=== PATIENT | female | born 1990 | race Caucasian/White ===

== ENCOUNTER 2017-09-12 10:13 | Emergency (ER) | payer MEDICAID, SELFPAY ==
[2017-09-12 10:26] VITALS: BP 125/86; PULSE 91; RESP 20; TEMP 36.8; O2SAT 98; BMI 29.1
--- NOTE | 2017-09-12 10:30 | HMH.EDUTC ---
[facility] [place] Disposition Clinical Impression: Tympanic membrane perforation, nontraumatic Qualifiers: Laterality: right Qualified Code(s): H72.91 - Unspecified perforation of tympanic membrane, right ear Disposition: Home, Self-Care Condition on Discharge: Good Additional Instructions: F/U with Dr Sexton Prescriptions: Ciprofloxacin HCl/Dexameth [Cipro 0.3%-Dex 0.1% Otic Susp 7.5mL] 4 drops OT BID 7 Days #1 drops.susp Cefdinir [Omnicef 300mg Capsule] 300 mg PO BID 10 Days #20 cap Referrals: Ravi Colin MD [Primary Care Provider] - Sean Sexton MD [Physician] - Time of Disposition: 10:46 Medical Decision Making - Medical Records Medical records reviewed: Yes: I reviewed the patient's medical records. Vital Signs: 09/12/17 10:26 Temperature 98.3 F Temperature Source Temporal Artery Scan Pulse Rate [Brachial] 91 H Respiratory Rate 20 Blood Pressure [Left Arm] 125/86 Blood Pressure Mean [Left Arm] 99 Blood Pressure Source [Left Arm] Automatic Cuff Blood Pressure Position [Left Arm] Sitting 02 Sat by Pulse Oximetry 98 Oxygen Delivery Method Room Air - Erik Inquiry Pt receiving controlled substance: No [facility] [place] HPI - General Stated complaint: ear ache Time Seen by Provider: 09/12/17 10:30 Mode of Arrival: Ambulatory Source of Information: Patient Limitations: No Limitations Description of Symptoms (Recalled from Triage Doc. by RN): RT EAR PAIN SINCE LAST NIGHT HEENT Symptoms (Recalled from RN notes): Yes Resp Symptoms (Recalled from RN notes): No Skin Symptoms (Recalled from RN notes): No MS Symptoms (Recalled from RN notes): No Functional Status (Recalled from RN notes): NA - History of Present Illness Provider Complaint: Right ear pain since this am. Woke up around 2 am, stretched and felt pop in right ear with severe pain. Pain has now resolved but has drainage from right ear. Has history of numerous ear infections, PE tubes, and a ruptured TM on the left with patch. Onset (ago): hour(s) (8) Location: head Treatments prior to arrival: none - Related Data Previous Rx's Medication Instructions Recorded Cefdinir [Omnicef 300mg Capsule] 300 mg PO BID 10 Days #20 cap 09/12/17 Ciprofloxacin HCl/Dexameth [Cipro 4 drops OT BID 7 Days #1 drops.susp 09/12/17 0.3%-Dex 0.1% Otic Susp 7.5mL] Allergies Allergy/AdvReac Type Severity Reaction Status Date / Time penicillin G [PENICILLIN G] Allergy Unknown Verified 09/12/17 10:28 - Worker's Comp Is this a Worker's Comp case?: No [facility] History Laterality Cases: Bilateral: Tonsillectomy Other Surgeries: Yes: Other (left TM patch) - *Social History Smoking Status: Never smoker Alcohol Intake: never - Psychiatric History Expresses thoughts of harming self/others: None Suicide Plan Description: No Plan ROS Obtained: Yes All systems reviewed & no additional complaints - ENT Ears, Nose, Mouth, and Throat: Reports as per HPI, Reports ear discharge, Reports otalgia, Reports nasal congestion Physical Exam - General General appearance: alert, in no apparent distress - Head Head exam: atraumatic, normocephalic, normal inspection - Eye Eye exam: Present: normal appearance, PERRL, EOMI - ENT ENT exam: Present: normal exam, normal oropharynx, mucous membranes moist, normal external ear exam - Expanded ENT Exam TM/Canal exam: Right TM: erythema, perforation, canal discharge - Neck Neck exam: Present: normal inspection, full ROM, trachea midline. Absent: meningismus, lymphadenopathy - Chest Chest inspection: Present: normal inspection, symmetric chest wall rise. Absent: tenderness - Respiratory Respiratory exam: Present: normal lung sounds bilaterally. Absent: respiratory distress - Cardiovascular Cardiovascular exam: Present: regular rate, normal rhythm. Absent: JVD - Abdominal Exam Abdominal exam: Present: soft, normal bowel sounds. Absent: distention, tenderness, guarding - Extremities Exam Extremities exam: Pre
--- NOTE | 2017-09-12 10:35 | ED_ITS ---
[facility] [place] Disposition Clinical Impression: Tympanic membrane perforation, nontraumatic Qualifiers: Laterality: right Qualified Code(s): H72.91 - Unspecified perforation of tympanic membrane, right ear Disposition: Home, Self-Care Condition on Discharge: Good Additional Instructions: F/U with Dr Sexton Prescriptions: Ciprofloxacin HCl/Dexameth [Cipro 0.3%-Dex 0.1% Otic Susp 7.5mL] 4 drops OT BID 7 Days #1 drops.susp Cefdinir [Omnicef 300mg Capsule] 300 mg PO BID 10 Days #20 cap Referrals: Ravi Colin MD [Primary Care Provider] - Sean Sexton MD [Physician] - Time of Disposition: 10:46 Medical Decision Making - Medical Records Medical records reviewed: Yes: I reviewed the patient's medical records. Vital Signs: 09/12/17 10:26 Temperature 98.3 F Temperature Source Temporal Artery Scan Pulse Rate [Brachial] 91 H Respiratory Rate 20 Blood Pressure [Left Arm] 125/86 Blood Pressure Mean [Left Arm] 99 Blood Pressure Source [Left Arm] Automatic Cuff Blood Pressure Position [Left Arm] Sitting 02 Sat by Pulse Oximetry 98 Oxygen Delivery Method Room Air - Erik Inquiry Pt receiving controlled substance: No [facility] [place] HPI - General Stated complaint: ear ache Time Seen by Provider: 09/12/17 10:30 Mode of Arrival: Ambulatory Source of Information: Patient Limitations: No Limitations Description of Symptoms (Recalled from Triage Doc. by RN): RT EAR PAIN SINCE LAST NIGHT HEENT Symptoms (Recalled from RN notes): Yes Resp Symptoms (Recalled from RN notes): No Skin Symptoms (Recalled from RN notes): No MS Symptoms (Recalled from RN notes): No Functional Status (Recalled from RN notes): NA - History of Present Illness Provider Complaint: Right ear pain since this am. Woke up around 2 am, stretched and felt pop in right ear with severe pain. Pain has now resolved but has drainage from right ear. Has history of numerous ear infections, PE tubes, and a ruptured TM on the left with patch. Onset (ago): hour(s) (8) Location: head Treatments prior to arrival: none - Related Data Previous Rx's Medication Instructions Recorded Cefdinir [Omnicef 300mg Capsule] 300 mg PO BID 10 Days #20 cap 09/12/17 Ciprofloxacin HCl/Dexameth [Cipro 4 drops OT BID 7 Days #1 drops.susp 09/12/17 0.3%-Dex 0.1% Otic Susp 7.5mL] Allergies Allergy/AdvReac Type Severity Reaction Status Date / Time penicillin G [PENICILLIN G] Allergy Unknown Verified 09/12/17 10:28 - Worker's Comp Is this a Worker's Comp case?: No [facility] History Laterality Cases: Bilateral: Tonsillectomy Other Surgeries: Yes: Other (left TM patch) - *Social History Smoking Status: Never smoker Alcohol Intake: never - Psychiatric History Expresses thoughts of harming self/others: None Suicide Plan Description: No Plan ROS Obtained: Yes All systems reviewed & no additional complaints - ENT Ears, Nose, Mouth, and Throat: Reports as per HPI, Reports ear discharge, Reports otalgia, Reports nasal congestion Physical Exam - General General appearance: alert, in no apparent distress - Head Head exam: atraumatic, normocephalic, normal inspection - Eye Eye exam: Present: normal appearance, PERRL, EOMI - ENT ENT exam: Present: normal exam, normal oropharynx, mucous membranes moist, normal external ear exam - Expanded ENT Exam
== END 2017-09-12 11:02 | disposition home or self-care (01) ==
PROVIDERS: Emergency Provider Physician Assistant; Family Provider Emergency Medicine; PCP Emergency Medicine
DX: H72.91 Unspecified perforation of tympanic membrane, right ear (principal); Z88.0 Allergy status to penicillin
CPT/HCPCS: 99202

== ENCOUNTER 2017-10-28 10:58 | Emergency (ER) | payer MEDICAID, SELFPAY ==
[2017-10-28 11:08] VITALS: BP 156/83; PULSE 90; RESP 18; TEMP 36.5; O2SAT 96; BMI 30.2
[2017-10-28 11:17] LABS: UTC Influenza A Antigen Negative (Negative); UTC Influenza B Antigen Negative (Negative)
--- NOTE | 2017-10-28 11:27 | HMH.EDUTC ---
[facility] [place] Clinical Impression: Viral upper respiratory infection Disposition: Home, Self-Care Condition on Discharge: Good Instructions: DI for Viral Upper Respiratory Infection -- Adult, Common Cold Additional Instructions: * Monitor Temp. Tylenol and/or Ibuprofen as needed. ER if fever is no less than 101 despite alternating Tylenol and Ibuprofen * Encourage fluids, water, Gatorade, powerade, pedialyte if /toddler/or child * Warm salt water gargles for throat irritation *Warm fluids *Sore throat lozenges *Sleep elevated *humidifier or vaporizer Lots of rest Increase fluids, water, Gatorade, powerade *Flonase 2 sprays each nostril daily but may take 2-3 days to notice improvement with it *Bromfed may cause drowsiness. Know how it effect you or your child. Before driving, caring for small children or sending your child to school Follow up IMMEDIATELY for new or worsening of symptoms OR no noticeable improvement over the next 48-72 hours. 911 immediately for any life threatening symptoms such as chest pain or difficulty breathing Prescriptions: Brompheniramine/Pseudoephed/Dm [Bromfed DM Cough Syrup 5mL] 10 ml PO Q4HP PRN #350 ml PRN Reason: Cough Fluticasone Propionate [Flonase 50mcg nasal spray 16gm] 2 spr NS DAILY #1 bottle Referrals: Ravi Colin MD [Primary Care Provider] - Forms: Work/School Release Time of Disposition: 11:45 Medical Decision Making - Medical Records Medical records reviewed: Yes: I reviewed the patient's medical records. Vital Signs: 10/28/17 11:08 Temperature 97.7 F Temperature Source Temporal Artery Scan Pulse Rate [Right] 90 Respiratory Rate 18 Blood Pressure [Right Arm] 156/83 Blood Pressure Mean [Right Arm] 107 Blood Pressure Source [Right Arm] Automatic Cuff Blood Pressure Position [Right Arm] Sitting 02 Sat by Pulse Oximetry 96 Oxygen Delivery Method Room Air - Lab Data Lab results reviewed: Yes: I reviewed the patient's lab results. Lab Results 10/28/17 11:11: Influenza Type A Ag Negative, Influenza Type B Ag Negative - Erik Inquiry Pt receiving controlled substance: No Erik was queried for this patient: No [facility] [place] - General Stated complaint: poss flu Mode of Arrival: Ambulatory Source of Information: Patient Limitations: No Limitations Description of Symptoms (Recalled from Triage Doc. by RN): STATES FLU SYMPTOMS TODAY HEENT Symptoms (Recalled from RN notes): Yes Resp Symptoms (Recalled from RN notes): No Skin Symptoms (Recalled from RN notes): No MS Symptoms (Recalled from RN notes): No Functional Status (Recalled from RN notes): N - History of Present Illness Provider Complaint: Patient state that last week her daughter had the flu State that now she is having sore throat, nasal congestion and cough States that she started running a low grade fever of 99.2 State that she was at work and they sent her home and told her to come in and get checked out - Related Data Previous Rx's Medication Instructions Recorded Ciprofloxacin HCl/Dexameth [Cipro 4 drops OT BID 7 Days #1 drops.susp 09/12/17 0.3%-Dex 0.1% Otic Susp 7.5mL] Brompheniramine/Pseudoephed/Dm 10 ml PO Q4HP PRN #350 ml 10/28/17 [Bromfed DM Cough Syrup 5mL] Fluticasone Propionate [Flonase 2 spr NS DAILY #1 bottle 10/28/17 50mcg nasal spray 16gm] Allergies Allergy/AdvReac Type Severity Reaction Status Date / Time penicillin G [PENICILLIN G] Allergy Unknown Verified 10/02/17 16:47 - Worker's Comp Is this a Worker's Comp case?: Yes [facility] History I have reviewed the patient's past medical history: Yes Laterality Cases: Bilateral: Tonsillectomy Other Surgeries: Yes: Appendectomy, , Other Comment: left ear drum patch - Social History Smoking Status: Never smoker Alcohol Intake: never Substance Use Type: denies use Occupational Status: employed Housing: house - Psychiatric History Expresses thoughts of harming self/others: None Richard
--- NOTE | 2017-10-28 11:42 | ED_ITS ---
[facility] [place] Dis[place] Clinical Impression: Viral upper respiratory infection Disposition: Home, Self-Care Condition on Discharge: Good Instructions: DI for Viral Upper Respiratory Infection -- Adult, Common Cold Additional Instructions: * Monitor Temp. Tylenol and/or Ibuprofen as needed. ER if fever is no less than 101 despite alternating Tylenol and Ibuprofen * Encourage fluids, water, Gatorade, powerade, pedialyte if infant/toddler/or child * Warm salt water gargles for throat irritation *Warm fluids *Sore throat lozenges *Sleep elevated *humidifier or vaporizer Lots of rest Increase fluids, water, Gatorade, powerade *Flonase 2 sprays each nostril daily but may take 2-3 days to notice improvement with it *Bromfed may cause drowsiness. Know how it effect you or your child. Before driving, caring for small children or sending your child to school Follow up IMMEDIATELY for new or worsening of symptoms OR no noticeable improvement over the next 48-72 hours. 911 immediately for any life threatening symptoms such as chest pain or difficulty breathing Prescriptions: Brompheniramine/Pseudoephed/Dm [Bromfed DM Cough Syrup 5mL] 10 ml PO Q4HP PRN # 350 ml PRN Reason: Cough Fluticasone Propionate [Flonase 50mcg nasal spray 16gm] 2 spr NS DAILY #1 bottle Referrals: Ravi Colin MD [Primary Care Provider] - Forms: Work/School Release Time of Disposition: 11:45 Medical Decision Making - Medical Records Medical records reviewed: Yes: I reviewed the patient's medical records. Vital Signs: 10/28/17 11:08 Temperature 97.7 F Temperature Source Temporal Artery Scan Pulse Rate [Right] 90 Respiratory Rate 18 Blood Pressure [Right Arm] 156/83 Blood Pressure Mean [Right Arm] 107 Blood Pressure Source [Right Arm] Automatic Cuff Blood Pressure Position [Right Arm] Sitting 02 Sat by Pulse Oximetry 96 Oxygen Delivery Method Room Air - Lab Data Lab results reviewed: Yes: I reviewed the patient's lab results. Lab Results 10/28/17 11:11: Influenza Type A Ag Negative, Influenza Type B Ag Negative - Erik Inquiry Pt receiving controlled substance: No Erik was queried for this patient: No [facility] [place] HPI - General Stated complaint: poss flu Mode of Arrival: Ambulatory Source of Information: Patient Limitations: No Limitations Description of Symptoms (Recalled from Triage Doc. by RN): STATES FLU SYMPTOMS TODAY HEENT Symptoms (Recalled from RN notes): Yes Resp Symptoms (Recalled from RN notes): No Skin Symptoms (Recalled from RN notes): No MS Symptoms (Recalled from RN notes): No Functional Status (Recalled from RN notes): N - History of Present Illness Provider Complaint: Patient state that last week her daughter had the flu State that now she is having sore throat, nasal congestion and cough States that she started running a low grade fever of 99.2 State that she was at work and they sent her home and told her to come in and get checked out - Related Data Previous Rx's Medication Instructions Recorded Ciprofloxacin HCl/Dexameth [Cipro 4 drops OT BID 7 Days #1 drops.susp 09/12/17 0.3%-Dex 0.1% Otic Susp 7.5mL] Brompheniramine/Pseudoephed/Dm 10 ml PO Q4HP PRN #350 ml 10/28/17 [Bromfed DM Cough Syrup 5mL] Fluticasone Propionate [Flonase 2 spr NS DAILY #1 bottle 10/28/17 50mcg nasal spray 16gm] Allergies Allergy/AdvReac
[2017-10-28 11:43] VITALS: BP 152/88; PULSE 88; RESP 16; TEMP 36.5
== END 2017-10-28 11:50 | disposition home or self-care (01) ==
PROVIDERS: Emergency Provider Nurse Practitioner; Family Provider Emergency Medicine; PCP Emergency Medicine
DX: J06.9 Acute upper respiratory infection, unspecified (principal); Z88.0 Allergy status to penicillin
CPT/HCPCS: 87804; 99202

== ENCOUNTER 2022-12-18 13:49 | Emergency (ER) | payer MEDICAID, SELFPAY ==
[2022-12-18 14:01] VITALS: BP 151/90; PULSE 103; RESP 20; TEMP 36.8; O2SAT 99; BMI 29.9
--- NOTE | 2022-12-18 14:02 | EXP.UTC ---
Discharge Plan Disposition Patient Disposition: Home, Self-Care Condition: Good Prescriptions Prescriptions: No Action azithromycin 250 mg tablet 250 mg PO QDAY 5 Days Qty: 6 0RF Rx Instructions: ii tabs day one, i tab days 2-5 Referrals Follow up/Referrals: Ravi Colin MD [Primary Care Provider] - See instructions Activity Restrictions/Add. Instructions Additional Instructions/Restrictions: Take tylenol or ibuprofen for pain. Follow up with your regular doctor. GO TO THE ER FOR ANY WORSENING SYMPTOMS Clinical Impressions Clinical Impression: Impacted cerumen of right ear Instructions Patient Instructions: DI for Cerumen Impaction, Cerumen Impaction Discharge ED Provider: Miguelito Ham [facility] [place] General Stated complaint: RT ear pain Time Seen by Provider: 12/18/22 14:02 Related Data Previous Rx's Medication Instructions Recorded azithromycin 250 mg tablet 250 mg PO QDAY sinusitis 5 days #6 10/04/19 tabs Allergies Allergy/AdvReac Type Severity Reaction Status Date / Time penicillin G [PENICILLIN G] Allergy Unknown Verified 12/18/22 14:05 [facility] Disclaimer: The information contained in this section may have been updated after the patient was seen, as this information can be updated by other users. Social History Smoking Status: Never smoker alcohol intake: never substance use type: denies use current occupational status: other Travel in the last 8 weeks: Inside the [place] household members: family housing: house ROS Obtained: Yes All systems reviewed & no additional complaints except as documented Constitutional Constitutional: Denies chills and Denies fever(s) Eyes Eyes: Denies eye discharge ENT Ears, Nose, Mouth, and Throat: Reports as per HPI, Denies dizziness and Denies sore throat Cardiovascular Cardiovascular: Denies chest pain Respiratory Respiratory: Denies shortness of breath, Denies chest congestion, Denies cough, Denies stridor and Denies wheezing Gastrointestinal Gastrointestingal: Denies nausea or vomiting Musculoskeletal Musculoskeletal: Reports system reviewed and no additional complaints, except as documented and Denies arthralgias Integumentary/Breasts Skin/Breast: Denies rash Neurologic Neurologic: Denies dizziness and Denies paresthesias Allergic/Immunologic Allergic/Immunologic: Denies wheezing Physical Exam General General appearance: alert and in no apparent distress Head Head exam: atraumatic, normocephalic and normal inspection Eye Eye exam: Present normal appearance, PERRL and EOMI ENT ENT exam: Present normal oropharynx, mucous membranes moist, TM's normal bilaterally and normal external ear exam Expanded ENT Exam TM/Canal exam: Right TM: cerumen impaction Neck Neck exam: Present normal inspection, full ROM and trachea midline; Absent meningismus or lymphadenopathy Chest Chest inspection: Present normal inspection and symmetric chest wall rise; Absent tenderness Respiratory Respiratory exam: Present normal lung sounds bilaterally; Absent respiratory distress Cardiovascular Cardiovascular exam: Present regular rate and normal rhythm; Absent JVD Abdominal Exam Abdominal exam: Present soft and normal bowel sounds; Absent distention, tenderness or guarding Extremities Exam Extremities exam: Present normal inspection, full ROM and normal capillary refill; Absent calf tenderness Back Exam Back exam: Present normal inspection; Absent tenderness Neurological Exam Neurological exam: Present alert and oriented X3 Psychiatric Psychiatric exam: Present normal affect and normal mood Skin Skin exam: Present warm, dry, intact and normal color Lymphatic Lymphatic Findings: no adenopathy Medical Decision Making Medical Records Medical records reviewed: No I reviewed the patient's medical records. Erik Inquiry Pt receiving controlled substance: No
[2022-12-18 14:50] VITALS: BP 151/90; PULSE 103; RESP 20; TEMP 36.8
== END 2022-12-18 14:45 | disposition home or self-care (01) ==
PROVIDERS: Emergency Provider Nurse Practitioner Family; PCP Emergency Medicine
DX: H92.01 Otalgia, right ear (principal); H61.21 Impacted cerumen, right ear
CPT/HCPCS: 99203; 99212; 99213; G0463

== ENCOUNTER 2023-03-13 16:26 | Emergency (ER) | payer MEDICAID, SELFPAY ==
[2023-03-13 16:27] VITALS: BP 147/93; PULSE 113; RESP 18; TEMP 36.6; O2SAT 99; BMI 24.3
--- NOTE | 2023-03-13 16:41 | EXP.UTC ---
Discharge Plan Disposition Patient Disposition: Home, Self-Care Condition: Good Prescriptions Prescriptions: New sulfamethoxazole-trimethoprim [Bactrim DS] 800-160 mg Tablet 1 tab PO BID Qty: 20 0RF cephalexin 500 mg capsule 500 mg PO QID Qty: 40 0RF mupirocin 2 % ointment 1 applic topical TID 7 Days Qty: 15 0RF No Action azithromycin 250 mg tablet 250 mg PO QDAY 5 Days Qty: 6 0RF Rx Instructions: ii tabs day one, i tab days 2-5 Referrals Follow up/Referrals: Ravi Colin MD [Primary Care Provider] - See instructions Activity Restrictions/Add. Instructions Additional Instructions/Restrictions: Keep the affected area clean and dry. Follow up with your regular doctor. Take the antibiotics as directed and apply the topical antibiotics as directed. Apply warm wet compresses to the affected area three or four times per day. GO TO THE ER FOR ANY WORSENING SYMPTOMS Clinical Impressions Clinical Impression: Abscess of groin, right Stand Alone Forms Stand Alone Forms: Work/School Release Instructions Patient Instructions: Boil Discharge ED Provider: Miguelito Ham [facility] General Stated complaint: poss infection spot on RT leg Mode of Arrival: Ambulatory Source of Information: Patient Limitations: No Limitations Time Seen by Provider: 03/13/23 16:41 Description of Symptoms (Recalled from Triage Doc. by RN): Patient reports having a spot near her vagina that hurts. States it is painful and difficult for her to walk. HEENT Symptoms (Recalled from RN notes): No Resp Symptoms (Recalled from RN notes): No Skin Symptoms (Recalled from RN notes): Yes MS Symptoms (Recalled from RN notes): No Functional Status (Recalled from RN notes): wnl History of Present Illness Provider Complaint: She states that, since yesterday, she has had a red swollen painful area on the right side of her groin. She denies any fever/chills. She is not diabetic. Related Data Previous Rx's Medication Instructions Recorded azithromycin 250 mg tablet 250 mg PO QDAY sinusitis 5 days #6 10/04/19 tabs cephalexin 500 mg capsule 500 mg PO QID #40 caps 03/13/23 mupirocin 2 % topical ointment 1 applic topical TID 7 days #15 03/13/23 grams sulfamethoxazole 800 1 tab PO BID #20 tabs 03/13/23 mg-trimethoprim 160 mg tablet (Bactrim DS) Allergies Allergy/AdvReac Type Severity Reaction Status Date / Time penicillin G [PENICILLIN G] Allergy Unknown Verified 12/18/22 14:05 Worker's Comp Is this a Worker's Comp case?: No [facility] Disclaimer: The information contained in this section may have been updated after the patient was seen, as this information can be updated by other users. Social History Smoking Status: Never smoker alcohol intake: never substance use type: denies use current occupational status: other Travel in the last 8 weeks: Inside the [place] household members: family housing: house ROS Obtained: Yes All systems reviewed & no additional complaints except as documented Constitutional Constitutional: Denies chills and Denies fever(s) Eyes Eyes: Denies eye discharge ENT Ears, Nose, Mouth, and Throat: Denies dizziness, Denies otalgia and Denies sore throat Cardiovascular Cardiovascular: Denies chest pain Respiratory Respiratory: Denies shortness of breath, Denies chest congestion, Denies cough, Denies stridor and Denies wheezing Gastrointestinal Gastrointestingal: Denies nausea or vomiting Musculoskeletal Musculoskeletal: Reports system reviewed and no additional complaints, except as documented and Denies arthralgias Integumentary/Breasts Skin/Breast: Reports as per HPI Neurologic Neurologic: Denies dizziness and Denies paresthesias Allergic/Immunologic Allergic/Immunologic: Denies wheezing Physical Exam General General appearance: alert and in no apparent distress Head Head exam: atraumatic,
[2023-03-13 17:32] VITALS: BP 147/93; PULSE 113; RESP 18; TEMP 36.6; O2SAT 99
== END 2023-03-13 17:32 | disposition home or self-care (01) ==
PROVIDERS: Emergency Provider Nurse Practitioner Family; PCP Emergency Medicine
DX: L02.214 Cutaneous abscess of groin (principal)
CPT/HCPCS: 96372; 99212; 99214; G0463; J0696

== ENCOUNTER 2024-01-11 16:59 | Emergency (ER) | payer MEDICAID, SELFPAY ==
[2024-01-11 17:10] VITALS: BP 147/96; PULSE 103; RESP 19; TEMP 36.7; O2SAT 99; BMI 29.1
--- NOTE | 2024-01-11 17:29 | ED_ITS ---
Discharge Plan Disposition Patient Disposition: Home, Self-Care Condition: Good Prescriptions Prescriptions: New fluconazole 100 mg tablet 100 mg PO DAILY 2 Days Qty: 2 0RF Referrals Follow up/Referrals: Juliana Espinal PA [Primary Care Provider] - See instructions Activity Restrictions/Add. Instructions Additional Instructions/Restrictions: Drink plenty of fluids. Take the medications as directed. Follow up with your regular doctor. GO TO THE ER FOR ANY WORSENING SYMPTOMS Clinical Impressions Clinical Impression: Vaginal yeast infection Instructions Patient Instructions: DI for Vaginal Yeast Infection, Fluconazole Discharge ED Provider: Miguelito Ham [facility] [place] HPI General Stated complaint: poss yeast inf Mode of Arrival: Ambulatory Source of Information: Patient Limitations: No Limitations Time Seen by Provider: 01/11/24 17:28 Description of Symptoms (Recalled from Triage Doc. by RN): PATIENT C/O ITCHING TO GENITAL AREA WITH WHITE DISCHARGE THAT STARTED FRIDAY HEENT Symptoms (Recalled from RN notes): No Resp Symptoms (Recalled from RN notes): No Skin Symptoms (Recalled from RN notes): No MS Symptoms (Recalled from RN notes): No Functional Status (Recalled from RN notes): WNL Related Data Previous Rx's Medication Instructions Recorded fluconazole 100 mg tablet 100 mg PO DAILY 2 days #2 tabs 01/11/24 Allergies Allergy/AdvReac Type Severity Reaction Status Date / Time penicillin G [PENICILLIN G] Allergy Unknown Verified 12/18/22 14:05 Worker's Comp Is this a Worker's Comp case?: No [facility] Disclaimer: The information contained in this section may have been updated after the patient was seen, as this information can be updated by other users. Surgical History (Updated 01/11/24 @ 17:16 by Sharona Earl RN) History of tonsillectomy History of appendectomy History of section Social History Smoking Status: Never smoker alcohol intake: never substance use type: denies use current occupational status: other Travel in the last 8 weeks: Inside the [place] household members: family housing: house ROS Obtained: Yes All systems reviewed & no additional complaints except as documented Constitutional Constitutional: Denies chills and Denies fever(s) Eyes Eyes: Denies eye discharge ENT Ears, Nose, Mouth, and Throat: Denies dizziness, Denies otalgia and Denies sore throat Cardiovascular Cardiovascular: Denies chest pain Respiratory Respiratory: Denies shortness of breath, Denies chest congestion, Denies cough, Denies stridor and Denies wheezing Gastrointestinal Gastrointestingal: Denies nausea or vomiting Musculoskeletal Musculoskeletal: Reports system reviewed and no additional complaints, except as documented and Denies arthralgias Integumentary/Breasts Skin/Breast: Denies rash Neurologic Neurologic: Denies dizziness and Denies paresthesias Allergic/Immunologic Allergic/Immunologic: Denies wheezing Physical Exam General General appearance: alert and in no apparent distress Head Head exam: atraumatic, normocephalic and normal inspection Eye Eye exam: Present normal appearance, PERRL and EOMI ENT ENT exam: Present normal exam, normal oropharynx, mucous membranes moist, TM's normal bilaterally and normal external ear exam Neck Neck exam: Present normal inspection, full ROM and trachea midline; Absent meningismus or lymphadenopathy Chest Chest inspection: Present normal inspection and symmetric chest wall rise; Absent tenderness Respiratory Respiratory exam: Present normal lung sounds bilaterally; Absent respiratory distress Cardiovascular Cardiovascular exam: Present regular rate and normal rhythm; Absent JVD Abdominal Exam Abdominal exam: Present soft and normal bowel sounds; Absent distention, tenderness or guarding Extremities Exam Extremities exam: Present normal inspection, full ROM and normal capillary refill; Absent calf tenderness Back Exam Back exam: Present normal inspection; Absent tenderness Neurological Exam Neurological exam: Present alert and oriented X3 Psychiatric Psychiatric exam: Present normal affect and normal mood Skin Skin exam: Present warm, dry, intact and normal color Lymphatic Lymphatic Findings: no adenopathy Medical Decision Making Medical Records Medical records reviewed: No I reviewed the patient's medical records. Erik Inquiry Pt receiving controlled substance: No Vital Signs: 01/11/24 17:10 Temperature 98.0 F Temperature Source Oral Pulse Rate [Left Brachial] 103 H Respiratory Rate 19 Blood Pressure [Left Arm] 147/96 H Blood Pressure Mean [Left Arm] 113 Blood Pressure Source [Left Arm] Automatic Cuff Blood Pressure Position [Left Arm] Sitting 02 Sat by Pulse Oximetry 99 Oxygen Delivery Method Room Air
[2024-01-11] MEDS: FLUCONAZOLE 100MG TABLET 150 MG PO (18:00)
[2024-01-11 18:01] VITALS: BP 147/96; PULSE 103; RESP 19; TEMP 36.7; O2SAT 99
== END 2024-01-11 18:07 | disposition home or self-care (01) ==
PROVIDERS: Emergency Provider Nurse Practitioner Family; PCP Physician Assistant
DX: B37.31 Acute candidiasis of vulva and vagina (principal)
CPT/HCPCS: 99212; 99214; G0463

== ENCOUNTER 2024-05-24 09:43 | Emergency (ER) | payer MEDICAID, SELFPAY ==
[2024-05-24 10:10] VITALS: BP 156/94; PULSE 112; RESP 20; TEMP 37.9; O2SAT 100; BMI 28.6
--- NOTE | 2024-05-24 10:13 | EXP.UTC ---
Discharge Plan Disposition Patient Disposition: Home, Self-Care Condition: Good Prescriptions Prescriptions: New cefdinir 300 mg capsule 300 mg PO BID Qty: 20 0RF No Action fluconazole 100 mg tablet 100 mg PO DAILY 2 Days Qty: 2 0RF Referrals Follow up/Referrals: David Soria DO [Primary Care Provider] - See instructions Activity Restrictions/Add. Instructions Additional Instructions/Restrictions: Take tylenol or ibuprofen for pain or fever. Take the medications as directed. Follow up with your regular doctor. Call them today and get an appointment there to discuss your elevated blood sugar and other issues within the next 48 hours. GO TO THE ER FOR ANY WORSENING OR ADDITIONAL CONCERNING SYMPTOMS Clinical Impressions Clinical Impression: Fever of unknown origin, Hyperglycemia Stand Alone Forms Stand Alone Forms: Work/School Release Instructions Patient Instructions: DI for Viral Syndrome Print Language Print Language: Greek Discharge ED Provider: Miguelito Ham [facility] [place] HPI General Stated complaint: fever 103.9, Time Seen by Provider: 05/24/24 10:13 History of Present Illness Provider Complaint: She states that for the past 2 days she has felt bad and ran a fever up to 103.9. She denies any cough or congestion. She denies chest tightness. She denies any abdominal pain and n/v/d. She has had some mild urinary frequency and urgency. She denies any dysuria. She denies being diabetic but she does have a history of gestational diabetes when she was with her child. Related Data Previous Rx's ?Medication ?Instructions ?Recorded fluconazole 100 mg tablet 100 mg PO DAILY 2 days #2 tabs 01/11/24 cefdinir 300 mg capsule 300 mg PO BID #20 caps 05/24/24 Allergies Allergy/AdvReac Type Severity Reaction Status Date / Time penicillin G [PENICILLIN G] Allergy Unknown Verified 12/18/22 14:05 [facility] Disclaimer: The information contained in this section may have been updated after the patient was seen, as this information can be updated by other users. Surgical History (Updated 01/11/24 @ 17:16 by Sharona Earl RN) History of tonsillectomy History of appendectomy History of section Social History Smoking Status: Never smoker alcohol intake: never substance use type: denies use current occupational status: other Travel in the last 8 weeks: Inside the [place] household members: family housing: house ROS Obtained: Yes All systems reviewed & no additional complaints except as documented Constitutional Constitutional: Reports chills and Reports fever(s) Eyes Eyes: Denies eye discharge ENT Ears, Nose, Mouth, and Throat: Reports as per HPI Cardiovascular Cardiovascular: Denies chest pain Respiratory Respiratory: Denies chest congestion and Reports cough Gastrointestinal Gastrointestingal: Reports nausea; Denies abdominal pain, constipation, cramping, diarrhea or vomiting Musculoskeletal Musculoskeletal: Denies arthralgias Integumentary/Breasts Skin/Breast: Denies rash Neurologic Neurologic: Denies paresthesias Physical Exam General General appearance: alert and in no apparent distress Head Head exam: atraumatic, normocephalic and normal inspection Eye Eye exam: Present normal appearance, PERRL and EOMI ENT ENT exam: Present normal exam, normal oropharynx, mucous membranes moist, TM's normal bilaterally and normal external ear exam Neck Neck exam: Present normal inspection, full ROM and trachea midline; Absent meningismus or lymphadenopathy Chest Chest inspection: Present normal inspection and symmetric chest wall rise; Absent tenderness Respiratory Respiratory exam: Present normal lung sounds bilaterally; Absent respiratory distress Cardiovascular Cardiovascular exam: Present regular rate and normal rhythm; Absent JVD Abdominal Exam Abdominal exam: Present soft and normal bowel sounds; Absent distention, tenderness or guarding Extremities Exam Extremities exam: Present normal inspection, full ROM and normal capillary refill; Absent calf tenderness Back Exam Back exam: Present normal inspection; Absent tenderness Neurological Exam Neurological exam: Present alert and oriented X3 Psychiatric Psychiatric exam: Present normal affect and normal mood Skin Skin exam: Present warm, dry, intact and normal color Lymphatic Lymphatic Findings: no adenopathy Medical Decision Making Medical Records Medical records reviewed: No I reviewed the patient's medical records. Screening: Per USPSTF and CDC recommendations, given the prevalence of disease in our region, it is our hospital?s policy to screen for HIV and viral Hepatitis for all patients aged 18 and over and those with ongoing risk factors. Erik Inquiry Pt receiving controlled substance: No Lab Data Lab results reviewed: Yes I reviewed the patient's lab results. 05/24/24 11:00 05/24/24 11:00 Radiology Data #1: Image(s): Chest Image Reviewed: Yes I reviewed the patient's radiology image and Yes I have reviewed radiologist's interpretation Preliminary Findings: No Infiltrates Seen Accession No. 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 The heart size is normal. The mediastinum is within normal limits. There is no acute cardiopulmonary process. There are no pleural effusions. There is no pneumothorax. The bony thorax appears intact. IMPRESSION: No acute cardiopulmonary process. Reviewed, Interpreted and Dictated by Vicki Soria MD Transcribed by Megan Rivera Authenticated and . [facility]
[2024-05-24 10:28] LABS: Microscopic, Urine URINE MICROSCOPIC (MICROSCOPIC)
[2024-05-24 10:37] LABS: Appearance,Urine CLEAR (Clear); Bilirubin,Urine Negative (Negative); Blood, Urine Negative (Negative); Color,Urine YELLOW (Yellow); Glucose,Urine (UA) 1+ (Negative); Ketones,Urine Negative (Negative); Leukocyte Esterase,Urine TRACE (Negative); Nitrate,Urine Negative (Negative); Protein,Urine Negative (Negative); Specific Gravity, Urine <= 1.005 (1.005-1.030); Urobilinogen,Urine 0.2 EU/dl (0.2)
[2024-05-24 10:41] LABS: UTC Pregnancy Test, Urine Negative (Negative)
--- NOTE | 2024-05-24 10:55 | XR_ITS ---
FINAL REPORT TECHNIQUE: Chest PA & Lateral CLINICAL HISTORY: cough, congestion COMPARISON: None FINDINGS: 2 views of the chest were performed. The heart size is normal. The mediastinum is within normal limits. There is no acute cardiopulmonary process. There are no pleural effusions. There is no pneumothorax. The bony thorax appears intact. IMPRESSION: No acute cardiopulmonary process. Reviewed, Interpreted and Dictated by Cornelius Soria MD Transcribed by Megan Rivera Authenticated and [facility]
[2024-05-24 11:20] LABS: Bacteria,Urine 2+ /lpf; Yeast,Urine Occasional /lpf
[2024-05-24 11:23] LABS: UTC Strep Screen (Rapid) Negative (Negative)
[2024-05-24 11:29] LABS: Chloride 94 mmol/L (98-107); Potassium 3.6 mmoL/L (3.5-5.1); Sodium 129 mmol/L (136-145)
[2024-05-24 11:32] LABS: Anion Gap 11.6 mEq/L (5-15); Blood Urea Nitrogen 4 mg/dl (7-17); Carbon Dioxide 27 mmol/L (22.0-30.0); Creatinine Clearance Estimated 195 mL/min (50-200); Estimated Glomerular Filt Rate 141 ml/min (>60); GFR (African American) 171 ML/MIN (>60)
[2024-05-24 11:33] LABS: Calcium 8.6 mg/dl (8.4-10.2); Glucose 382 mg/dl (74-100)
[2024-05-24 11:35] LABS: Basophils # 0.1 K/mm3 (0-0.2); Basophils % 1.2 % (0.1-2.0); Eosinophils # 0.1 K/mm3 (0.0-0.4); Eosinophils % 1.1 % (0.1-12.0); Hematocrit 42.6 % (37.0-47.0); Hemoglobin 14.2 g/dL (12.2-16.2); Lymphocytes # 3.3 K/mm3 (0.7-4.5); Lymphocytes % 49.4 % (10-50); Mean Corpuscular HGB Conc 33.4 g/dL (31.8-35.4); Mean Corpuscular Hemoglobin 29.2 pg (27.0-31.2); Mean Corpuscular Volume 87.6 fl (81-99); Mean Platelet Volume 6.6 fl (7.4-10.4); Monocytes # 0.3 K/mm3 (0.1-1.0); Monocytes % 3.9 % (1.7-9.3); Neutrophils % 44.3 % (37.0-80.0); Platelet Count 241 K/mm3 (142-424); Red Blood Count 4.87 M/mm3 (4.20-5.40); Red Cell Distribution Width 13.7 % (11.5-17.5); White Blood Count 6.7 K/mm3 (4.8-10.8)
[2024-05-24 12:23] LABS: Acetone, Serum (Rapid) None Detected (None Detect)
[2024-05-24 12:36] VITALS: BP 156/94; PULSE 112; RESP 20; TEMP 37.9; O2SAT 100
[2024-05-24 12:47] LABS: Adenovirus,PCR Not Detected (NotDetected); Bordetella Pertussis Not Detected (NotDetected); Chlamydophila Pneumoniae, PCR Not Detected (NotDetected); Coronavirus 19, PCR Not Detected (NotDetected); Coronavirus 229E Not Detected (NotDetected); Coronavirus NL63 Not Detected (NotDetected); Coronavirus OC43 Not Detected (NotDetected); Coronovirus HKU1,PCR Not Detected (NotDetected); Human Metapneumovirus Not Detected (NotDetected); Influenza A, PCR Not Detected (NotDetected); Influenza AH1, 2009 Not Detected (NotDetected); Influenza AH1, PCR Not Detected (NotDetected); Influenza AH3,PCR Not Detected (NotDetected); Influenza B, PCR Not Detected (NotDetected); Mycoplasma Pneumoniae, PCR Not Detected (NotDetected); Parainfluenza 1, PCR Not Detected (NotDetected); Parainfluenza 2, PCR Not Detected (NotDetected); Parainfluenza 3, PCR Not Detected (NotDetected); Parainfluenza 4, PCR Not Detected (NotDetected); Respiratory Syncytial Virus Not Detected (NotDetected); Rhinovirus/Enterovirus Not Detected (NotDetected)
--- NOTE | 2024-05-26 11:39 | PC.NURSE ---
REVIEWED PATIENT'S URINE CULTURE WITH Verenice SMITH APRN. NO CHANGES NEEDED AT THIS TIME.
--- NOTE | 2024-05-26 13:33 | PC.NURSE ---
SPOKE WITH PATIENT ABOUT URINE CULTURE RESULTS. PATIENT STATES SHE IS SOME BETTER. ADVISED PATIENT TO CONTINUE TAKING ANTIBIOTICS AND FOLLOW-UP WITH PCP
== END 2024-05-24 12:44 | disposition home or self-care (01) ==
PROVIDERS: Emergency Provider Nurse Practitioner Family; PCP Internal Medicine
DX: R50.9 Fever, unspecified (principal); R73.9 Hyperglycemia, unspecified; E87.1 Hypo-osmolality and hyponatremia
CPT/HCPCS: 71046; 80048; 81001; 81025; 82009; 85025; 87086; 87088; 87186; 87265; 87486; 87581; 87632; 87635; 87880; 99212; 99214; G0463

== ENCOUNTER 2024-09-10 11:27 | Emergency (ER) | payer MEDICAID, SELFPAY ==
[2024-09-10 11:45] VITALS: BP 141/94; PULSE 113; RESP 19; TEMP 37.2; O2SAT 100; BMI 30.8
--- NOTE | 2024-09-10 12:02 | EXP.UTC ---
Discharge Plan Disposition Patient Disposition: Still a Patient Condition: Fair Prescriptions Prescriptions: No Action No Known Home Medications Referrals Follow up/Referrals: David Soria DO [Primary Care Provider] - See instructions Clinical Impressions Clinical Impression: Abdominal pain Print Language Print Language: Romanian Discharge ED Provider: Mickey Greene [facility] [place] General Stated complaint: pain in upper abd., nausea Mode of Arrival: Ambulatory Source of Information: Patient Limitations: No Limitations Time Seen by Provider: 09/10/24 12:02 Description of Symptoms (Recalled from Triage Doc. by RN): PATIENT C/O RUQ PAIN THAT RADIATES TO BACK WITH NAUSEA THAT HAS BEEN ON AND OFF SINCE FRIDAY HEENT Symptoms (Recalled from RN notes): No Resp Symptoms (Recalled from RN notes): No Skin Symptoms (Recalled from RN notes): No MS Symptoms (Recalled from RN notes): No Functional Status (Recalled from RN notes): WNL History of Present Illness Provider Complaint: She states that she is having abdominal pain and nausea. Her symptoms have been ongoing for the past 4 days. She states that her pain and nausea is getting worse. She states that eating makes her pain and nausea much worse. She has not found anything that helps relieve her pain. She has a history of appendectomy in the past. She does still have her gall bladder. She denies any urinary complaints. Related Data Home Medications ?Medication ?Instructions ?Recorded ?Confirmed No Known Home Medications 09/10/24 09/10/24 Allergies Allergy/AdvReac Type Severity Reaction Status Date / Time penicillin G (PENICILLIN G) Allergy Unknown Verified 12/18/22 14:05 Worker's Comp Is this a Worker's Comp case?: No [facility] Disclaimer: The information contained in this section may have been updated after the patient was seen, as this information can be updated by other users. Surgical History (Updated 09/10/24 @ 11:59 by Sharona Earl RN) History of tubal ligation History of tonsillectomy History of appendectomy History of section Social History Smoking Status: Never smoker alcohol intake: never substance use type: denies use current occupational status: other Travel in the last 8 weeks: [place] the [place] household members: family housing: house Have you lived/traveled outside US in past 30 days?: Yes Contact w/someone who lives/traveled outside US past 30 days?: Yes Exposure to someone with infectious disease in past 14 days?: No Do you have a fever (greater than 100.4 F or 38 C)?: No Have you tested positive for COVID-19: No Exposed to someone with COVID-19 in past 14 days?: No Do you have a sore throat?: No Do you have a cough?: No Do you have any weakness?: No Do you have any diarrhea?: No Are you experiencing any unusual bleeding?: No Do you have any muscle aches/pain?: Yes Do you have any abdominal pain?: No Are you experiencing loss of taste or smell?: No ROS Obtained: Yes All systems reviewed & no additional complaints except as documented Constitutional Constitutional: Denies chills, Denies fever(s) and Reports poor appetite ENT Ears, Nose, Mouth, and Throat: Denies dizziness and Denies sore throat Cardiovascular Cardiovascular: Denies dyspnea Respiratory Respiratory: Denies chest congestion, Denies cough and Denies dyspnea Gastrointestinal Gastrointestingal: Reports as per HPI Genitourinary Female Genitourinary: Denies difficulty voiding, Denies dysuria, Denies hematuria, Denies urinary frequency, Denies urinary incontinence, Denies urinary hesitancy and Denies urinary urgency Musculoskeletal Musculoskeletal: Denies arthralgias Integumentary/Breasts Skin/Breast: Denies rash Neurologic Neurologic: Denies dizziness Physical Exam General General appearance: alert and in no apparent distress Head Head exam: atraumatic and normocephalic Eye Eye exam: Present normal appearance, PERRL and EOMI ENT ENT exam: Present normal exam, normal oropharynx, mucous membranes moist, TM's normal bilaterally and normal external ear exam Neck Neck exam: Present normal inspection, full ROM and trachea midline; Absent tenderness, meningismus or lymphadenopathy Chest Chest inspection: Present normal inspection and symmetric chest wall rise; Absent tenderness, rash or abscess Respiratory Respiratory exam: Present normal lung sounds bilaterally; Absent respiratory distress, wheezes or stridor Cardiovascular Cardiovascular exam: Present regular rate and normal rhythm; Absent irregular rhythm, systolic murmur, diastolic murmur or JVD Abdominal Exam Abdominal exam: Present soft, tenderness, guarding and diminished bowel sounds; Absent distention, rebound or rigidity Extremities Exam Extremities exam: Present normal inspection and full ROM; Absent tenderness Back Exam Back exam: Present normal inspection and full ROM; Absent tenderness, CVA tenderness (R) or CVA tenderness (L) Neurological Exam Neurological exam: Present alert, oriented X3 and CN II-XII intact Psychiatric Psychiatric exam: Present normal affect and normal mood Skin Skin exam: Present warm, dry, intact and normal color Lymphatic Lymphatic Findings: no adenopathy Medical Decision Making Medical Records Medical records reviewed: No I reviewed the patient's medical records. Screening: Per USPSTF and CDC recommendations, given the prevalence of disease in our region, it is our hospital?s policy to screen for HIV and viral Hepatitis for all patients aged 18 and over and those with ongoing risk factors. Erik Inquiry Pt receiving controlled substance: No Vital Signs: 09/10/24 11:45 Temperature 98.9 F Temperature Source Oral Pulse Rate [Left Brachial] 113 H Respiratory Rate 19 Blood Pressure [Left Arm] 141/94 H Blood Pressure Mean [Left Arm] 109 02 Sat by Pulse Oximetry 100 Oxygen Delivery Method Room Air Medical Decision Narrative: She was transferred to the ER for further evaluation of her abdominal pain.
--- NOTE | 2024-09-10 12:05 | HMH.EDGENADL ---
Discharge Plan Prescriptions Prescriptions: No Action No Known Home Medications Referrals Follow up/Referrals: David Soria DO [Primary Care Provider] - See instructions Print Language Print Language: Tongan Discharge ED Provider: Mickey Greene General Adult HPI General Stated complaint: pain in upper abd., nausea Time Seen by Provider: 09/10/24 12:02 Mode of Arrival: Ambulatory Source of Information: Patient Limitations: No Limitations Description of Symptoms (Recalled from ER Triage Doc. by RN): PATIENT C/O RUQ PAIN THAT RADIATES TO BACK WITH NAUSEA THAT HAS BEEN ON AND OFF SINCE FRIDAY Related Data Home Medications ?Medication ?Instructions ?Recorded ?Confirmed No Known Home Medications 09/10/24 09/10/24 Allergies Allergy/AdvReac Type Severity Reaction Status Date / Time penicillin G (PENICILLIN G) Allergy Unknown Verified 12/18/22 14:05 [facility] Disclaimer: The information contained in this section may have been updated after the patient was seen, as this information can be updated by other users. Surgical History (Updated 09/10/24 @ 11:59 by Sharona Earl RN) History of tubal ligation History of tonsillectomy History of appendectomy History of section Social History Smoking Status: Never smoker alcohol intake: never substance use type: denies use current occupational status: other Travel in the last 8 weeks: [place] the [place] household members: family housing: house Have you lived/traveled outside US in past 30 days?: Yes Contact w/someone who lives/traveled outside US past 30 days?: Yes Exposure to someone with infectious disease in past 14 days?: No Do you have a fever (greater than 100.4 F or 38 C)?: No Have you tested positive for COVID-19: No Exposed to someone with COVID-19 in past 14 days?: No Do you have a sore throat?: No Do you have a cough?: No Do you have any weakness?: No Do you have any diarrhea?: No Are you experiencing any unusual bleeding?: No Do you have any muscle aches/pain?: Yes Do you have any abdominal pain?: No Are you experiencing loss of taste or smell?: No Other Medical History Have you received the Flu Vaccine for this season: Yes Have you received the Pneumonia Vaccine: No ROS Obtained: Yes All systems reviewed & no additional complaints except as documented Physical Exam General General appearance: alert and in no apparent distress Eye Eye exam: Present normal appearance, PERRL and EOMI Respiratory Respiratory exam: Present normal lung sounds bilaterally; Absent respiratory distress Cardiovascular Cardiovascular exam: Present regular rate and normal rhythm Abdominal Exam Abdominal exam: Present soft and distention; Absent tenderness, guarding or rebound Extremities Exam Extremities exam: Present normal inspection Neurological Exam Neurological exam: Present alert and oriented X3 Skin Skin exam: Present warm and dry Medical Decision Making Medical Records Medical records reviewed: Yes I reviewed the patient's medical records. Screening: Per USPSTF and CDC recommendations, given the prevalence of disease in our region, it is our hospital?s policy to screen for HIV and viral Hepatitis for all patients aged 18 and over and those with ongoing risk factors. Erik Inquiry Pt receiving controlled substance: No Vital Signs: 09/10/24 11:45 Temperature 98.9 F Temperature Source Oral Pulse Rate [Left Brachial] 113 H Respiratory Rate 19 Blood Pressure [Left Arm] 141/94 H Blood Pressure Mean [Left Arm] 109 02 Sat by Pulse Oximetry 100 Oxygen Delivery Method Room Air
[2024-09-10 12:07] VITALS: BP 127/89; PULSE 99; RESP 18; TEMP 36.6; O2SAT 100; BMI 28.8
--- NOTE | 2024-09-10 12:17 | US_ITS ---
FINAL REPORT TECHNIQUE: Multiple transverse and longitudinal images were obtained of the right upper quadrant. CLINICAL HISTORY: RUQ abd pain COMPARISON: None FINDINGS: The gallbladder shows no wall thickening, distention or stone disease. No biliary ductal dilatation is appreciated. No fluid collections are seen. Limited portions of the liver show fatty changes. No focal hepatic mass is seen. Limited portions of the right kidney are unremarkable. IMPRESSION: 1. No evidence of cholelithiasis or biliary obstruction. 2. Fatty change of liver. Reviewed, Interpreted and Dictated by Tyson Lomeli MD Transcribed by Ledy Rizzo Authenticated and [facility]
[2024-09-10 12:21] LABS: Basophils % 0.6 % (0.1-2.0); Eosinophils # 0.1 K/mm3 (0.0-0.4); Hematocrit 41.5 % (37.0-47.0); Hemoglobin 14.4 g/dL (12.2-16.2); Lymphocytes # 2.9 K/mm3 (0.7-4.5); Mean Corpuscular HGB Conc 34.7 g/dL (31.8-35.4); Mean Corpuscular Hemoglobin 28.2 pg (27.0-31.2); Mean Platelet Volume 9.3 fl (7.4-10.4); Monocytes # 0.4 K/mm3 (0.1-1.0); Neutrophils # 3.4 K/mm3 (1.8-7.8); Red Cell Distribution Width 12.6 % (11.5-17.5); White Blood Count 6.8 K/mm3 (4.8-10.8)
[2024-09-10 12:28] LABS: Albumin Level 4.5 g/dl (3.5-5.0); Chloride 99 mmol/L (98-107); Potassium 3.8 mmoL/L (3.5-5.1); Sodium 131 mmol/L (136-145)
[2024-09-10 12:30] LABS: Blood Urea Nitrogen 7 mg/dl (7-17); Creatinine Clearance Estimated 245 mL/min (50-200); Estimated Glomerular Filt Rate 182 ml/min (>60); GFR (African American) 220 ML/MIN (>60)
[2024-09-10 12:31] LABS: Alanine Aminotransferase 22 U/L (12-78); Albumin/Globulin Ratio 1.3 (1.1-1.8); Alkaline Phosphatase 114 U/L (38-126); Anion Gap 11.8 mEq/L (5-15); Aspartate Amino Transferase 23 U/L (14-36); Bilirubin,Total 1.2 mg/dl (0.2-1.3); Calcium 8.9 mg/dl (8.4-10.2); Carbon Dioxide 24 mmol/L (22.0-30.0); Globulin 3.4 g/dL (1.3-3.2); Lipase 66 U/L (23-300); Total Protein,Serum 7.9 g/dl (6.3-8.2)
[2024-09-10 12:33] VITALS: BP 127/80; PULSE 99; O2SAT 100
[2024-09-10 12:33] LABS: Glucose 452 mg/dl (74-100)
[2024-09-10 12:41] LABS: Lactate Venous 1.5 mmol/L (0.4-2.0); VBG Base Excess -4.9 mmol/L (-2.4-2.3); VBG HCO3 21.3 mmol/L (23-30); VBG Oxygen Saturation 55.4 % (50-70); VBG PCO2 43.2 mmol/L (35-51); VBG PH 7.31 mmol/L (7.31-7.41); VBG PO2 29.8 mmol/L (28-40); VBG Total CO2 22.6 mmol/L (23-27)
[2024-09-10 12:42] LABS: Lymphocytes % 42.6 % (10-50); Mean Corpuscular Volume 81.2 fl (81-99); Neutrophils % 49.5 % (37.0-80.0); Platelet Count 228 K/mm3 (142-424); Red Blood Count 5.11 M/mm3 (4.20-5.40)
[2024-09-10] MEDS: RINGERS SOLUTION,LACTATED 500 ML 999 ML IV (12:44)
[2024-09-10] MEDS: HYDROMORPHONE 2MG/ML SYRINGE 1 MG IV (12:44)
[2024-09-10] MEDS: ONDANSETRON 4MG/2ML VIAL 4 MG IV (12:44)
[2024-09-10 12:51] LABS: Acetone, Serum (Rapid) None Detected (None Detect)
[2024-09-10 12:58] LABS: HCG Qualitative, Serum Negative (Negative)
[2024-09-10] MEDS: FAMOTIDINE 20MG/2ML VIAL 40 MG IV (13:49)
[2024-09-10 13:57] LABS: HIV Combo NEGATIVE (Negative)
[2024-09-10] MEDS: INSULIN HUMAN REGULAR 100 UNITS/ML 10ML VIAL 10 UNIT SUBCUT (13:57)
[2024-09-10 14:05] LABS: Hepatitis C Ab Qual. W/ RFX NEGATIVE (Negative)
[2024-09-10] MEDS: PROMETHAZINE HCL 12.5MG TABLET 12.5 MG PO (15:00)
[2024-09-10] MEDS: ONDANSETRON 4MG ODT 4 MG SL (15:03)
--- NOTE | 2024-09-10 15:07 | HMH.EDGENADL ---
Discharge Plan Disposition Patient Disposition: Home, Self-Care Condition: Fair Prescriptions Prescriptions: New promethazine 12.5 mg tablet 12.5 mg PO TID Qty: 20 0RF ondansetron 4 mg tablet,disintegrating 4 mg PO Q6H PRN (Reason: nausea and vomiting) Qty: 20 0RF polyethylene glycol 3350 [Miralax] 17 gram/dose powder 17 g PO DAILY 10 Days Qty: 170 0RF sennosides [Natural Senna Laxative] 8.6 mg tablet 8.6 mg PO DAILY Qty: 30 0RF docusate calcium [Stool Softener (docusate iftikhar)] 240 mg capsule 240 mg PO DAILY Qty: 30 0RF Referrals Follow up/Referrals: David Soria DO [Primary Care Provider] - See instructions Activity Restrictions/Add. Instructions Additional Instructions/Restrictions: Take Zofran and Phenergan as needed for nausea and vomiting. Use bowel regimen as prescribed. Follow-up with primary care doctor. Please return the emerged part with any new, concerning, worsening symptoms. Clinical Impressions Clinical Impression: Abdominal pain Qualifiers: Abdominal location: right upper quadrant Qualified Code(s): R10.11 - Right upper quadrant pain Stand Alone Forms Stand Alone Forms: Work/School Release Instructions Patient Instructions: DI for Acute Abdominal Pain Print Language Print Language: Tajik Discharge ED Provider: Mickey Greene General Adult HPI General Chief complaint: Abdominal Pain Stated complaint: pain in upper abd., nausea Time Seen by Provider: 09/10/24 12:02 Mode of Arrival: Ambulatory Source of Information: Patient Limitations: No Limitations Description of Symptoms (Recalled from ER Triage Doc. by RN): PATIENT C/O RUQ PAIN THAT RADIATES TO BACK WITH NAUSEA THAT HAS BEEN ON AND OFF SINCE FRIDAY History of Present Illness HPI narrative: This is a 34-year-old female with a past medical history of type 2 diabetes who presents with right upper quadrant abdominal pain. States that she has had intermittent right upper quadrant abdominal pain for the last 2 to 3 days, worse with the eating. Also reports nausea and vomiting. Presented to urgent treatment center for evaluation and was sent to the emergency department for further evaluation and care. Related Data Previous Rx's ?Medication ?Instructions ?Recorded docusate calcium 240 mg capsule 240 mg PO DAILY #30 caps 09/10/24 (Stool Softener (docusate calcium)) ondansetron 4 mg disintegrating 4 mg PO Q6H PRN nausea and 09/10/24 tablet vomiting #20 tabs polyethylene glycol 3350 17 17 g PO DAILY 10 days #170 grams 09/10/24 gram/dose oral powder (Miralax) promethazine 12.5 mg tablet 12.5 mg PO TID #20 tabs 09/10/24 sennosides 8.6 mg tablet (Natural 8.6 mg PO DAILY #30 tabs 09/10/24 Senna Laxative) Allergies Allergy/AdvReac Type Severity Reaction Status Date / Time penicillin G (PENICILLIN G) Allergy Unknown Verified 12/18/22 14:05 [facility] Disclaimer: The information contained in this section may have been updated after the patient was seen, as this information can be updated by other users. Surgical History (Updated 09/10/24 @ 11:59 by Sharona Earl RN) History of tubal ligation History of tonsillectomy History of appendectomy History of section Social History Smoking Status: Never smoker alcohol intake: never substance use type: denies use current occupational status: other Travel in the last 8 weeks: Inside the [place] household members: family housing: house Have you lived/traveled outside [place] in past 30 days?: Yes Contact w/someone who lives/traveled outside [place] past 30 days?: Yes Exposure to someone with infectious disease in past 14 days?: No Do you have a fever (greater than 100.4 F or 38 C)?: No Have you tested positive for COVID-19: No Exposed to someone with COVID-19 in past 14 days?: No Do you have a sore throat?: No Do you have a cough?: No Do you have any weakness?: No Do you have any diarrhea?: No Are you experiencing any unusual bleeding?: No Do you have any muscle aches/pain?: Yes Do you have any abdominal pain?: No Are you experiencing loss of taste or smell?: No Other Medical History Have you received the Flu Vaccine for this season: Yes Have you received the Pneumonia Vaccine: No ROS Obtained: Yes All systems reviewed & no additional complaints except as documented Physical Exam General General appearance: alert and in no apparent distress Eye Eye exam: Present normal appearance, PERRL and EOMI Respiratory Respiratory exam: Present normal lung sounds bilaterally; Absent respiratory distress Cardiovascular Cardiovascular exam: Present regular rate and normal rhythm Abdominal Exam Abdominal exam: Present soft, distention and tenderness (RUQ); Absent guarding or rebound Extremities Exam Extremities exam: Present normal inspection Neurological Exam Neurological exam: Present alert and oriented X3 Skin Skin exam: Present warm and dry Medical Decision Making Medical Records Medical records reviewed: Yes I reviewed the patient's medical records. Screening: Per USPSTF and CDC recommendations, given the prevalence of disease in our region, it is our hospital?s policy to screen for HIV and viral Hepatitis for all patients aged 18 and over and those with ongoing risk factors. Erik Inquiry Pt receiving controlled substance: No Vital Signs: 09/10/24 11:45 09/10/24 12:07 09/10/24 12:33 Temperature 98.9 F 98 F Temperature Source Oral Oral Pulse Rate 99 H Pulse Rate [Left Brachial] 113 H 99 H Respiratory Rate 19 18 Blood Pressure 127/80 Blood Pressure [Left Arm] 141/94 H 127/89 Blood Pressure Mean [Left Arm] 109 101 02 Sat by Pulse Oximetry 100 100 100 Oxygen Delivery Method Room Air Room Air 09/10/24 15:22 Temperature 98.2 F Temperature Source Oral Pulse Rate 75 Pulse Rate [Left Brachial] Respiratory Rate 16 Blood Pressure 120/84 Blood Pressure [Left Arm] Blood Pressure Mean [Left Arm] 02 Sat by Pulse Oximetry Oxygen Delivery Method Room Air Lab Data Lab Results 09/10/24 12:10: WBC 6.8, RBC 5.11, Hgb 14.4, Hct 41.5, MCV 81.2, MCH 28.2, MCHC 34.7, RDW 12.6, Plt Count 228, MPV 9.3, Neut % (Auto) 49.5, Lymph % (Auto) 42.6, Clay % (Auto) 6.0, Eos % (Auto) 1.0, Baso % (Auto) 0.6, Neut # (Auto) 3.4, Lymph # (Auto) 2.9, Clay # (Auto) 0.4, Eos # (Auto) 0.1, Baso # (Auto) 0.0, Sodium 131 L, Potassium 3.8, Chloride 99, Carbon Dioxide 24, Anion Gap 11.8, BUN 7, Creatinine 0.40 L, Estimated Creat Clear 245, Estimated GFR 182, Est GFR ( Amer) 220, Glucose 452 H*, Calcium 8.9, Total Bilirubin 1.2, AST 23, ALT 22, Alkaline Phosphatase 114, Total Protein 7.9, Albumin 4.5, Globulin 3.4 H, Albumin/Globulin Ratio 1.3, Lipase 66, Serum HCG, Qual Negative, Acetone Level None detected, HCV Ab OC w/Rflx PCR Qn Negative, HIV Ag/Ab Combo Qual Negative 09/10/24 12:36: VBG pH 7.31, VBG pCO2 43.2, VBG pO2 29.8, VBG HCO3 21.3 L, VBG Total CO2 22.6 L, VBG O2 Saturation 55.4, VBG Base Excess -4.9 L, VBG Lactic Acid 1.5 09/10/24 12:10 09/10/24 12:10 Orders (Tests/Meds): ED MEDICATIONS Discontinued Medications Generic Name Dose Route Start Last Admin Trade Name Freq PRN Reason Stop Dose Admin Famotidine 40 mg 09/10/24 13:39 09/10/24 13:49 Famotidine 20mg/2ml Vial IV 09/10/24 13:40 40 mg ONCE ONE Administration Hydromorphone HCl 1 mg 09/10/24 12:10 09/10/24 12:44 Hydromorphone 2mg/Ml Syringe IV 09/10/24 12:11 1 mg ONCE ONE Administration Lactated Ringer's 500 mls @ 999 mls/hr 09/10/24 12:09 09/10/24 12:44 Lactated Ringer's 500ml IV 09/10/24 12:39 999 mls/hr .Q31M ONE Administration Insulin Human Regular 10 unit 09/10/24 14:00 09/10/24 13:57 Insulin Human Regular 100 Units/Ml 10ml Vial SUBCUT 09/10/24 14:01 10 unit ONCE ONE Administration Ondansetron HCl 4 mg 09/10/24 12:09 09/10/24 12:44 Ondansetron 4mg/2ml Vial IV 09/10/24 12:10 4 mg ONCE ONE Administration Ondansetron HCl 4 mg 09/10/24 15:03 09/10/24 15:03 Ondansetron 4mg Odt SL 09/10/24 15:04 4 mg ONCE ONE Administration Promethazine HCl 12.5 mg 09/10/24 14:09 09/10/24 15:00 Promethazine Hcl 12.5mg Tablet PO 09/10/24 14:10 12.5 mg ONCE ONE Administration ORDERS Category Date Time Status POCUS Point of Care (ER Only) Stat Exams 09/10/24 12:09 Completed US RUQ [US abdomen limited] Stat Exams 09/10/24 12:17 Completed Acetone, Serum (Rapid) Stat Lab 09/10/24 12:10 Completed CBC w/Auto Diff [Complete Blood Count Auto Diff] Stat Lab 09/10/24 12:10 Completed CMP [Comprehensive Metabolic Panel] Stat Lab 09/10/24 12:10 Completed HCG Qualitative, Serum Stat Lab 09/10/24 12:10 Completed HIV Combo Stat Lab 09/10/24 12:10 Completed Hepatitis C Ab Qual. W/ RFX Stat Lab 09/10/24 12:10 Completed Lipase Stat Lab 09/10/24 12:10 Completed VBG [Venous Blood Gas] Stat RT 09/10/24 12:36 Completed Medical Decision Narrative: In summary, this 34-year-old female with a history of type 2 diabetes presents to the emergency department today with right upper quadrant abdominal pain. On initial evaluation patient is afebrile, nontoxic-appearing, tachycardic to 113 but normotensive. Differential diagnosis includes but is not limited to cholelithiasis, cholecystitis, ectopic , pancreatitis. Based on these concerns, I ordered CBC, CMP, lipase, test, right upper quadrant ultrasound. Patient received Dilaudid, Zofran, 1 L of lactated Ringer's for treatment. Labs personally reviewed demonstrate glucose of 452. Added on acetone and VBG. Venous pH unremarkable and acetone negative. Normal LFTs and normal lipase. Independently interpreted right upper quadrant ultrasound revealing of no acute biliary pathology. On reassessment patient still complaining of nausea and vomiting. Administered Phenergan and Zofran. Also administered 10 units of subcutaneous regular insulin for hyperglycemia. On reevaluation, the patient tolerating oral intake without difficulty. Appropriate for discharge with prescription for antiemetics and follow-up with PCP for further evaluation of her diabetes. Ultimately discharged in stable condition. Critical Care Critical Care Time Critical Care Time: No
[2024-09-10 15:22] VITALS: BP 120/84; PULSE 75; RESP 16; TEMP 36.8; O2SAT 98
== END 2024-09-10 15:37 | disposition home or self-care (01) ==
LOC: UTC 11:31 → ER 12:04
PROVIDERS: Emergency Provider Student in an Organized Health Care Education/Training Program; PCP Internal Medicine
DX: R10.11 Right upper quadrant pain (principal); R11.0 Nausea; R63.8 Other symptoms and signs concerning food and fluid intake
CPT/HCPCS: 76705; 80053; 82009; 82803; 83690; 84703; 85025; 86803; 87389; 96361; 96372; 96374; 96375; 99284; J1171; J2405; J7120; Q0162; S0028

== ENCOUNTER 2025-01-12 09:16 | Emergency (ER) | payer MEDICAID, SELFPAY ==
--- NOTE | 2025-01-12 09:24 | ECG_ITS ---
APPROVED REPORT Exam: Resting ECG HR:105 bpm ECG Measurements Heart Rate 105 AXES VA 128 P 51 QRSd 116 QRS 25 QT 360 T 31 QTc 421 Conclusion Sinus tachycardia Electronically signed by : ARDIANA GUAMAN, 01/13/2025 18:37:23
[2025-01-12 09:40] VITALS: BP 122/84; PULSE 103; RESP 18; TEMP 36.7; O2SAT 100; BMI 28.3
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
[2025-01-12] MEDS: METHOCARBAMOL 500MG TABLET 750 MG PO (10:45)
[2025-01-12] MEDS: ACETAMINOPHEN 500MG TAB 1000 MG PO (10:45)
[2025-01-12 10:47] LABS: Microscopic, Urine URINE MICROSCOPIC (MICROSCOPIC)
[2025-01-12 10:50] LABS: Appearance,Urine CLEAR (Clear); Bilirubin,Urine Negative (Negative); Blood, Urine Negative (Negative); Color,Urine YELLOW (Yellow); Glucose,Urine (UA) 3+ (Negative); Ketones,Urine Negative (Negative); Leukocyte Esterase,Urine Negative (Negative); Nitrate,Urine Negative (Negative); Protein,Urine Negative (Negative); Specific Gravity, Urine <= 1.005 (1.005-1.030); Urobilinogen,Urine 0.2 EU/dl (0.2)
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
[2025-01-12 10:53] LABS: Urine Pregnancy, HCG Qual. Negative (Negative)
[2025-01-12 11:00] LABS: Bacteria,Urine Trace /lpf; Trichomonas,Urine 1+ /lpf
--- NOTE | 2025-01-12 11:00 | PC.NURSE ---
Gave pt warm blanket.
[2025-01-12 13:10] VITALS: BP 126/80; PULSE 90; RESP 18; TEMP 36.6; O2SAT 99
--- NOTE | 2025-01-15 17:49 | PC.NURSE ---
I discussed the pts urine culture results with . No change needed in treatment plan.
== END 2025-01-12 13:10 | disposition home or self-care (01) ==
PROVIDERS: Physician Assistant; Emergency Provider Emergency Medicine; PCP Nurse Practitioner Family
DX: M54.2 Cervicalgia (principal); R00.0 Tachycardia, unspecified; R51.9 Headache, unspecified; B37.31 Acute candidiasis of vulva and vagina; V49.40XA Driver injured in collision with unspecified motor vehicles in traffic accident, initial encounter; Y92.410 Unspecified street and highway as the place of occurrence of the external cause
CPT/HCPCS: 70450; 71046; 72125; 72131; 72170; 73030; 81001; 81025; 87086; 87088; 87186; 93005; 99285

== ENCOUNTER 2025-02-20 17:27 | Observation (INO) | payer MEDICAID, SELFPAY ==
[2025-02-20 17:39] VITALS: BP 145/83; PULSE 106; RESP 16; TEMP 36.9; O2SAT 100; BMI 28.3
--- OUTSIDE RECORDS SUMMARY | 2025-02-20 17:42 | XMS_ITS | Clinical Summary ---
Author Organization Healthcare Address [address] [place] [address] Care Team Providers Care Director Instrumentation Name Role Phone Ravi Colin MD Primary Care Provider [phone] Immunizations Immunization Administration Dates Next Due Tdap 11/09/2018 Family History Medical History Relation Name Comments Diabetes Father Heart attack Father Relation Name Status Comments Father Social History Tobacco Use Types Packs/Day Years Used Date Smoking Tobacco: Never Comments Unknown Sex and Gender Information Value Date Recorded Sex Assigned at Not on file Legal Sex Female 8:43 PM EDT Gender Identity Not on file Sexual Orientation Not on file Last Filed Vital Signs Vital Sign Reading Time Taken Comments Blood Pressure 182/109 11/05/2018 2:09 PM EDT Pulse 85 11/05/2018 2:09 PM EDT Temperature - - Respiratory Rate - - Oxygen Saturation - - Inhaled Oxygen Concentration - - Weight 111 kg (244 lb 11.4 oz) 11/05/2018 1:56 P M EDT Height 165.1 cm (5' 5 ) 11/02/2018 10:10 AM EDT Body Mass Index 40.72 11/02/2018 10:10 AM EDT Plan of Treatment Not on file Care Teams Director Instrumentation Relationship Specialty Start Date End Date Ravi Colin MD [address] [facility] [place] [id number] PCP - General 01/05/21
--- NOTE | 2025-02-20 18:05 | ED_ITS ---
Discharge Plan Disposition Patient Disposition: Admitted Prescriptions Prescriptions: No Action promethazine 12.5 mg tablet 12.5 mg PO TID Qty: 20 0RF ondansetron 4 mg tablet,disintegrating 4 mg PO Q6H PRN (Reason: nausea and vomiting) Qty: 20 0RF polyethylene glycol 3350 [Miralax] 17 gram/dose powder 17 g PO DAILY 10 Days Qty: 170 0RF sennosides [Natural Senna Laxative] 8.6 mg tablet 8.6 mg PO DAILY Qty: 30 0RF docusate calcium [Stool Softener (docusate iftikhar)] 240 mg capsule 240 mg PO DAILY Qty: 30 0RF metronidazole 500 mg tablet 500 mg PO BID Qty: 14 0RF methocarbamol 750 mg tablet 750 mg PO HS Qty: 30 0RF fluconazole 150 mg tablet 150 mg PO DAILY 2 Days Qty: 2 0RF Referrals Follow up/Referrals: Andrea Gary APRN [Primary Care Provider, Family Practice] - See instructions Clinical Impressions Clinical Impression: Hyperosmolality syndrome, Diabetes mellitus, new onset Print Language Print Language: Rw[place] Discharge ED Provider: Raimundo Vallecillo General Adult HPI General Chief complaint: Fall Stated complaint: numbness in rt leg has fallen 3x Time Seen by Provider: 02/20/25 17:35 Mode of Arrival: Ambulatory Source of Information: Patient Description of Symptoms (Recalled from ER Triage Doc. by RN): Pt reports having left arm numbness which began approx 5 days ago. Pt reports she thought maybe it was from sleeping on her arm. Pt is now also c/o right leg numbness. Pt had fall today with abrasion noted to both knees. Pt denies any pain at this time. History of Present Illness HPI narrative: Please note that above description of symptoms, in this electronic medical record under categorization of recalled from ER triage doctor by RN are reflective of an initial nursing assessment, however, is not reflective of my full history and physical exam that was personally taken and clarified. Consequentially, this preceding description of symptoms, which may include the patient's categorized chief complaint in the EMR, do not reflect my personal clinical impression, and the ultimate description of history of present illness and patient stated complaints should be deferred to this section of the note. Unless stated otherwise or congruent with this section of the note, additional signs, symptoms, or incongruence should be interpreted as inaccurate with my clinical impression. Related Data Previous Rx's ?Medication ?Instructions ?Recorded docusate calcium 240 mg capsule 240 mg PO DAILY #30 ca ps 09/10/24 (Stool Softener (docusate calcium)) ondansetron 4 mg disintegrating 4 mg PO Q6H PRN nausea and 09/10/24 tablet vomiting #20 tabs polyethylene glycol 3350 17 17 g PO DAILY 10 days #170 grams 09/10/24 gram/dose oral powder (Miralax) promethazine 12.5 mg tablet 12.5 mg PO TID #20 tabs sennosides 8.6 mg tablet (Natural 8.6 mg PO DAILY #30 tabs 09/10/24 Senna Laxative) fluconazole 150 mg tablet 150 mg PO DAILY 2 days #2 ta bs 01/12/25 methocarbamol 750 mg tablet 750 mg PO HS #30 tabs 12/24 09/18 metronidazole 500 mg tablet 500 mg PO BID #14 tabs Allergies Allergy/AdvReac Type Severity Reaction Status Date / Time penicillin G (PENICILLIN G) Allergy Unknown Verified 12/18/22 14:05 [facility] Disclaimer: The information contained in this section may have been updated after the patient was seen, as this information can be updated by other users. Surgical History (Updated 09/10/24 @ 11:59 by Sharona Earl RN) History of tubal ligation History of tonsillectomy History of appendectomy History of section Social History Smoking Status: Smoker, status unknown alcohol intake: never substance use type: denies use current occupational status: other Travel in the last 8 weeks?: Inside the [place] household members: family housing: house Have you lived/traveled outside US in past 30 days?: No Contact w/someone who lives/traveled outside US past 30 days?: No Exposure to someone with infectious disease in past 14 days?: No Do you have a fever (greater than 100.4 F or 38 C)?: No Have you tested positive for COVID-19?: No Exposed to someone with COVID-19 in past 14 days?: No Do you have a sore throat?: No Do you have a cough?: No Do you have any weakness?: No Do you have any diarrhea?: No Are you experiencing any unusual bleeding?: No Do you have any muscle aches/pain?: No Do you have any abdominal pain?: No Are you experiencing loss of taste or smell?: No Other Medical History Have you received the Flu Vaccine for this season: Yes Have you received the Pneumonia Vaccine: No ROS Obtained: Yes All systems reviewed & no additional complaints except as documented Physical Exam General General appearance: alert and anxious Head Head exam: atraumatic and normocephalic Eye Eye exam: Present normal appearance, PERRL and EOMI Neck Neck exam: Present normal inspection, full ROM and trachea midline; Absent tenderness Respiratory Respiratory exam: Absent respiratory distress, wheezes, stridor, accessory muscle use or prolonged expiratory phase Cardiovascular Cardiovascular exam: Present normal rhythm, tachycardia and other (Pulses equal symmetric in upper and lower extremities) Abdominal Exam Abdominal exam: Present soft; Absent distention, tenderness or pulsatile mass Extremities Exam Extremities exam: Present other (Superficial abrasions overlying both anterior patellas. Neurovascular intact lower extremities. Range of motion intact and full. Patient has pain with squeezing right calf. No outward signs of abnormality, swelling, redness, etc.); Absent edema Neurological Exam Neurological exam: Present alert, oriented X3 and CN II-XII intact; Absent motor sensory deficit Skin Skin exam: Present warm and dry; Absent diaphoresis or erythema Medical Decision Making Medical Records Medical records reviewed: Yes I reviewed the patient's medical records. Screening: Per USPSTF and CDC recommendations, given the prevalence of disease in our region, it is our hospital?s policy to screen for HIV and viral Hepatitis for all patients aged 18 and over and those with ongoing risk factors. Erik Inquiry Pt receiving controlled substance: No Erik was queried for this patient: No Vital Signs: 02/20/25 17:39 02/20/25 18:45 Temperature 98.4 F Temperature Source Oral Pulse Rate 104 H Pulse Rate [Left] 106 H Respiratory Rate 16 Blood Pressure 158/109 H Blood Pressure [Right Arm] 145/83 H Blood Pressure Mean [Right Arm] 103 Blood Pressure Source [Right Arm] Automatic Cuff 02 Sat by Pulse Oximetry 100 100 Oxygen Delivery Method Room Air Room Air Lab Data Lab Results 02/20/25 18:05: WBC 7.4, RBC 4.42, Hgb 12.4, Hct 37.3, MCV 84.4, MCH 28.1, MCHC 33.2, RDW 12.8, Plt Count 297, MPV 9.5, Neut % (Auto) 59.1, Lymph % (Auto) 34.1, [place] % (Auto) 5.4, Eos % (Auto) 0.7, Baso % (Auto) 0.4, Neut # (Auto) 4.4, Lymph # (Auto) 2.5, [place] # (Auto) 0.4, Eos # (Auto) 0.1, Baso # (Auto) 0.0, D-Dimer 0.64 H, Sodium 128 L, Potassium 3.5, Chloride 90 L, Carbon Dioxide 24, Anion Gap 17.5 H, BUN 3 L, Creatinine 0.50 L, Estimated Creat Clear 191, Estimated GFR 140, Est GFR ( Amer) 170, Glucose 719 H*, Calcium 8.7, Total Bilirubin 1.5 H, AST 27, ALT 20, Alkaline Phosphatase 85, Total Creatine Kinase 40, Total Protein 7.8, Albumin 3.9, Globulin 3.9 H, Albumin/Globulin Ratio 1.0 L 02/20/25 18:06: Urine Color Yellow, Urine Appearance Clear, Urine pH 6.0, Ur Specific [place] <= 1.005, Urine Protein Negative, Urine Glucose (UA) 3+, Urine Ketones Negative, Urine Blood Negative, Urine Nitrate Negative, Urine Bilirubin Negative, Urine Urobilinogen 0.2, Ur Leukocyte Esterase Trace, Urine RBC 5-10, Urine WBC 10-20, Ur Squamous Epith Cells 3-5, Urine Bacteria 2+, Urine Yeast Occasional 02/20/25 : Hemoglobin A1c > 14.0 H 02/20/25 18:05 02/20/25 18:05 Orders (Tests/Meds): ED MEDICATIONS Generic Name Dose Route Start Last Admin Trade Name Freq PRN Reason Stop Dose Admin Potassium Chloride/Water 100 mls @ 50 mls/hr 02/20/25 18:38 02/20/25 18:48 Potassium Chloride 20meq/100ml Ivpb IV 02/21/25 00:37 50 mls/hr Q2H OSMAR Administration Magnesium Sulfate 2 gm in 50 mls @ 50 mls/hr 02/20/25 18:38 02/20/25 18:48 Magnesium Sulfate 2gm/50ml Premix IV 02/20/25 19:37 50 mls/hr ONCE ONE Administration Sodium Chloride 1,000 mls @ 999 mls/hr 02/20/25 18:41 02/20/25 18:49 Sod Chlor 0.9% 1000ml Bag IV 02/20/25 19:41 999 mls/hr .Q1H1M ONE Administration Sodium Chloride 10 ml 02/20/25 18:54 02/20/25 19:00 Sodium Chloride 0.9% 10ml Syr (Rad Only) IV 03/22/25 18:53 10 ml NEEDED PRN Administration Maintain IV Site Discontinued Medications Generic Name Dose Route Start Last Admin Trade Name Freq PRN Reason Stop Dose Admin Insulin Human Regular 8 unit 02/20/25 19:21 02/20/25 19:28 Insulin Human Regular 100 Units/Ml 10ml Vial 0.1 unit/kg (8 unit) 02/20/25 19:22 8 unit IV Administration ONCE ONE Iopamidol 70 ml 02/20/25 18:54 02/20/25 19:03 Iopamidol-370 (76%);100ml Bottle IV 02/20/25 18:55 70 ml ONCE ONE Administration Ketorolac Tromethamine 15 mg 02/20/25 17:57 02/20/25 18:13 Ketorolac 30mg/Ml Vial IV 02/20/25 17:58 15 mg ONCE ONE Administration Magnesium Oxide 800 mg 02/20/25 18:38 02/20/25 18:48 Magnesium Oxide 400mg Tablet PO 02/20/25 18:39 800 mg ONCE ONE Administration Potassium Chloride 60 meq 02/20/25 18:38 02/20/25 18:48 Potassium Chloride 20meq Tab PO 02/20/25 18:39 60 meq ONCE ONE Administration Sodium Chloride 50 ml 02/20/25 18:54 02/20/25 19:03 0.9 % Sodium Chloride 50 Ml Vial IV 02/20/25 18:55 50 ml ONCE ONE Administration ORDERS Category Date Time Status CTA Chest [CT angio chest PE protocol] Stat Cat Scan 02/20/25 18:38 Taken Knee XR left 3 views [XR knee LT 3V] Stat Exams 02/20/25 18:10 Completed Knee XR right 3 views [XR knee RT 3V] Stat Exams 02/20/25 18:10 Completed CBC w/Auto Diff [Complete Blood Count Auto Diff] Stat Lab 02/20/25 18:05 Completed CK [Creatine Kinase] Stat Lab 02/20/25 18:05 Completed CMP [Comprehensive Metabolic Panel] Stat Lab 02/20/25 18:05 Completed D-Dimer Stat Lab 02/20/25 18:05 Completed Hemoglobin A1C Stat Lab 02/20/25 Completed UA [Urinalysis and Microscopic] Stat Lab 02/20/25 18:06 Completed Urine Chlam/Gono/Trich, AMILCAR Stat Lab 02/20/25 18:13 Received Urine Culture Stat Micro 02/20/25 18:06 Received VBG [Venous Blood Gas] Stat RT 02/20/25 18:38 Ordered Medical Decision Narrative: 34-year-old female presenting with multiple complaints. She states that about 5 days ago she had tingling in her left upper extremity when she woke up that was from her elbow down. Lasted for about 2 days and resolved spontaneously. She states that she thought she slept on it wrong. Shortly after that, she started having what felt like right lower extremity heaviness. She states that it is hard for her to point her toes upward and dorsiflex the foot because it feels like I am about to have a charley horse in my calf. Came in for further evaluation due to constellation of symptoms. History was obtained via conversation with patient. On arrival, patient hemodynamically stable, alert, oriented x4, appropriate, GCS 15, moving all extremities spontaneously, pupils equal and reactive to light. Full physical exam performed and significant for Superficial abrasions overlying both anterior patellas. Neurovascular intact lower extremities. Range of motion intact and full. Patient has pain with squeezing right calf. No outward signs of abnormality, swelling, redness, etc. left upper extremity within normal limits. Sensation and motor intact, pulses equal and symmetric. Cardiac exam tachycardic, otherwise unremarkable no murmurs gallops rubs. Lungs are clear bilaterally anterior and posterior. No respiratory distress. Speaking full sentences. Differential includes metabolic abnormality, endocrinologic abnormality, somatization, radiculopathy, neuropathy, DVT, PE, pneumothorax, among others. Patient placed on continuous cardiac monitoring and continuous pulse ox with initial blood pressure 145/83, heart rate 106, saturation 100% on room air. Patient was given IV fluids for symptomatic management and correction of underlying abnormalities. Workup independently interpreted and significant for glucose 719, A1c greater than 14. Patient's chemistry with pseudohyponatremia 128 with potassium of 3.5. Prior to insulin, patient was given 60 mill equivalents p.o. and IV potassium was started as well. Patient's anion gap only mildly elevated 17.5 and no ketones in the urine. On independent interpretation of imaging, no acute PE or intrathoracic process. See radiology read for full review of final results. On reevaluation, patient resting comfortably. Results were relayed to her, she is pretty surprised by the findings today. Hospital medicine was contacted and case was discussed, to be admitted. Given patient presentation, workup, history, this most likely represents hyperosmolar state. Insulin administered. Because patient high risk for clinical decompensation, deemed appropriate for inpatient admission. Results were relayed to patient who voiced understanding and patient was agreeable to inpatient admission and management. Patient was admitted to the hospital for further definitive management. 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 Electronic sonar technician of the spoken language may permit errors. Although I have reviewed the note, some errors may still exist. Critical Care Critical Care Time Critical Care Time: No
--- NOTE | 2025-02-20 18:10 | XR_ITS ---
PROCEDURE INFORMATION: Exam: XR Right Knee Exam date and time: 02/20/2025 6:16 PM Age: 34 years old Clinical indication: Injury or trauma; Fall; Other: Pain; Additional info: Fall, anterior knee pain TECHNIQUE: Imaging protocol: Radiologic exam of the right knee. Views: 3 views. COMPARISON: No relevant prior studies available. FINDINGS: Bones/joints: Normal. Soft tissues: Normal. IMPRESSION: No acute findings.
--- NOTE | 2025-02-20 18:10 | XR_ITS ---
PROCEDURE INFORMATION: Exam: XR Left Knee Exam date and time: 02/20/2025 6:18 PM Age: 34 years old Clinical indication: Injury or trauma; Fall; Other: Pain; Additional info: Fall, anterior knee pain TECHNIQUE: Imaging protocol: Radiologic exam of the left knee. Views: 3 views. COMPARISON: No relevant prior studies available. FINDINGS: Bones/joints: Normal. Soft tissues: Normal. IMPRESSION: No acute findings.
[2025-02-20 18:12] LABS: Microscopic, Urine URINE MICROSCOPIC (MICROSCOPIC)
[2025-02-20 18:13] LABS: Appearance,Urine CLEAR (Clear); Bilirubin,Urine Negative (Negative); Blood, Urine Negative (Negative); Color,Urine YELLOW (Yellow); Glucose,Urine (UA) 3+ (Negative); Ketones,Urine Negative (Negative); Leukocyte Esterase,Urine TRACE (Negative); Nitrate,Urine Negative (Negative); Protein,Urine Negative (Negative); Specific Gravity, Urine <= 1.005 (1.005-1.030); Urobilinogen,Urine 0.2 EU/dl (0.2)
[2025-02-20] MEDS: KETOROLAC 30MG/ML VIAL 15 MG IV (18:13)
[2025-02-20 18:17] LABS: Basophils % 0.4 % (0.1-2.0); Eosinophils # 0.1 Kmm3 (0.0-0.4); Eosinophils % 0.7 % (0.1-12.0); Hematocrit 37.3 % (37.0-47.0); Hemoglobin 12.4 g/dL (12.2-16.2); Immature Granulocytes # 0.02 10^3uL; Immature Granulocytes % 0.3 %; Lymphocytes # 2.5 K/mm3 (0.7-4.5); Lymphocytes % 34.1 % (10-50); Mean Corpuscular HGB Conc 33.2 g/dL (31.8-35.4); Mean Corpuscular Hemoglobin 28.1 pg (27.0-31.2); Mean Corpuscular Volume 84.4 fl (81-99); Mean Platelet Volume 9.5 fl (7.4-10.4); Monocytes # 0.4 K/mm3 (0.1-1.0); Monocytes % 5.4 % (1.7-9.3); Neutrophils # 4.4 K/mm3 (1.8-7.8); Neutrophils % 59.1 % (37.0-80.0); Nucleated Red Blood Cells # 0 10^3/uL; Nucleated Red Blood Cells % 0 %; Platelet Count 297 K/mm3 (142-424); Red Blood Count 4.42 M/mm3 (4.20-5.40); Red Cell Distribution Width 12.8 % (11.5-17.5); Red Cell Distribution Width-SD 39.2 fL; White Blood Count 7.4 K/mm3 (4.8-10.8)
[2025-02-20 18:24] LABS: Alanine Aminotransferase 20 U/L (12-78); Albumin Level 3.9 g/dl (3.5-5.0); Alkaline Phosphatase 85 U/L (38-126); Anion Gap 17.5 mEq/L (5-15); Aspartate Amino Transferase 27 U/L (14-36); Bilirubin,Total 1.5 mg/dl (0.2-1.3); Blood Urea Nitrogen 3 mg/dl (7-17); Calcium 8.7 mg/dl (8.4-10.2); Carbon Dioxide 24 mmol/L (22.0-30.0); Chloride 90 mmol/L (98-107); Creatine Kinase 40 U/L (30-135); Creatinine Clearance Estimated 191 mL/min (50-200); Estimated Glomerular Filt Rate 140 ml/min (>60); GFR (African American) 170 ML/MIN (>60); Globulin 3.9 g/dL (1.3-3.2); Potassium 3.5 mmoL/L (3.5-5.1); Sodium 128 mmol/L (136-145); Total Protein,Serum 7.8 g/dl (6.3-8.2)
[2025-02-20 18:28] LABS: D-Dimer 0.64 ug/mL (0.0-0.5)
[2025-02-20 18:31] LABS: Bacteria,Urine 2+ /lpf; Yeast,Urine Occasional /lpf
[2025-02-20 18:37] LABS: Glucose 719 mg/dl (74-100)
--- NOTE | 2025-02-20 18:38 | CT_ITS ---
PROCEDURE INFORMATION: Exam: CTA Chest With Contrast Exam date and time: 02/20/2025 6:56 PM Age: 34 years old Clinical indication: Other: Tachycardia, calf cramps TECHNIQUE: Imaging protocol: Computed tomographic angiography of the chest with contrast. Exam focused on the arteries. 3D rendering (Not supervised by radiologist): MIP and/or 3D reconstructed images were created by the technologist. Radiation optimization: All CT scans at this facility use at least one of these dose optimization techniques: automated exposure control; mA and/or kV adjustment per patient size (includes targeted exams where dose is matched to clinical indication); or iterative reconstruction. Contrast material: ISOUVE 370; Contrast volume: 70 ml; Contrast route: INTRAVENOUS (IV); COMPARISON: CR XR CHEST 2V 01/12/2025 11:06 AM FINDINGS: Pulmonary arteries: No central or segmental pulmonary arterial intraluminal filling defects identified. Aorta: Unremarkable. No aortic aneurysm. No aortic dissection. Lungs: Bilateral perihilar subtle interstitial ground-glass opacities. Pleural spaces: Unremarkable. No pneumothorax. No pleural effusion. Heart: Unremarkable. No cardiomegaly. No pericardial effusion. Lymph nodes: Unremarkable. No enlarged lymph nodes. Bones/joints: Unremarkable. No acute fracture. Soft tissues: Unremarkable. IMPRESSION: 1. No obvious central or segmental pulmonary arterial embolism identified. 2. Mild pulmonary edema versus air trapping.
[2025-02-20 18:45] VITALS: BP 158/109; PULSE 104; O2SAT 100
[2025-02-20] MEDS: POTASSIUM CHLORIDE 20MEQ TAB 60 MEQ PO (18:48)
[2025-02-20] MEDS: MAGNESIUM SULFATE IN WATER 2 GM/50 ML PIGGYBACK IV (18:48)
[2025-02-20] MEDS: KCl 20mEq/100ml 100 ML 50 MEQ IV ×2 (18:48→21:37)
[2025-02-20] MEDS: MAGNESIUM OXIDE 400MG TABLET 800 MG PO (18:48)
[2025-02-20] MEDS: 0.9 % SODIUM CHLORIDE 1000ML 1,000 ML 999 ML IV ×2 (18:49→21:40)
[2025-02-20] MEDS: SODIUM CHLORIDE 0.9% 10ML SYR (RAD ONLY) 10 ML IV (19:00)
[2025-02-20] MEDS: IOPAMIDOL-370 (76%);100ML BOTTLE 70 ML IV (19:03)
[2025-02-20] MEDS: 0.9 % SODIUM CHLORIDE 50 ML VIAL IV (19:03)
[2025-02-20 19:21] LABS: Hemoglobin A1C > 14.0 % (4.0-6.0)
[2025-02-20] MEDS: INSULIN HUMAN REGULAR 100 UNITS/ML 10ML VIAL 8 UNIT IV (19:28)
[2025-02-20 19:30] VITALS: BP 122/90; PULSE 95; RESP 14; O2SAT 100
[2025-02-20 20:00] VITALS: BP 125/86; BP 157/97; PULSE 97; PULSE 98; RESP 11; RESP 21; TEMP 36.6; O2SAT 100
--- NOTE | 2025-02-20 20:12 | PC.NURSE ---
Report called to Shahana FERNÁNDEZ for admission to hospital
--- NOTE | 2025-02-20 20:12 | EXP.HP ---
History of Present Illness *Admission Date: 02/20/25 *Reason for visit:: Fall *History of present illness: 34-year-old female no prior medical history other than gestational diabetes presents to the emergency department after sustaining a minor fall with skin abrasions to her knees. She states that she has been feeling kind of weak over the last few days. She has also been having excessive urination and thirst. Today she noted her legs were going numb. When she went to use step over something she was unable to lift her leg and then tripped over it landing on her knees. In the emergency department she was tachycardic. Noted to have severely elevated blood glucose in the 700s. She was given IV fluids and insulin. CT PE was performed due to tachycardia. Demonstrated mild pulmonary edema versus air trapping, otherwise no acute findings. Discussed finding with patient. Discussed admission. Patient agreeable with plan and being admitted overnight. No other concerns or complaints at this time. History independently obtained. Diagnostics were independently interpreted and reviewed. Prior records were reviewed independently. Case discussed with ER physician [facility] Disclaimer: The information contained in this section may have been updated after the patient was seen, as this information can be updated by other users. Surgical History (Updated 09/10/24 @ 11:59 by Sharona Earl RN) History of tubal ligation History of tonsillectomy History of appendectomy History of section Social History Smoking Status: Smoker, status unknown alcohol intake: never substance use type: denies use current occupational status: other Travel in the last 8 weeks?: Inside the [place] household members: family housing: house Have you lived/traveled outside US in past 30 days?: No Contact w/someone who lives/traveled outside US past 30 days?: No Exposure to someone with infectious disease in past 14 days?: No Do you have a fever (greater than 100.4 F or 38 C)?: No Have you tested positive for COVID-19?: No Exposed to someone with COVID-19 in past 14 days?: No Do you have a sore throat?: No Do you have a cough?: No Do you have any weakness?: No Do you have any diarrhea?: No Are you experiencing any unusual bleeding?: No Do you have any muscle aches/pain?: No Do you have any abdominal pain?: No Are you experiencing loss of taste or smell?: No Other Medical History Have you received the Flu Vaccine for this season: Yes Have you received the Pneumonia Vaccine: No Review of Systems Review of Systems Review of systems:: pertinent systems reviewed and negative unless documented below Constitutional Constitutional: Reports frequent falls and Reports weight loss Eyes Eyes: Reports system reviewed and no additional complaints, except as documented ENT Ears, Nose, Mouth, and Throat: Reports system reviewed and no additional complaints, except as documented, Reports disequilibrium and Reports dry mouth *Cardiovascular Cardiovascular: Reports system reviewed and no additional complaints, except as documented and Reports rapid heart rate *Respiratory Respiratory: Reports system reviewed and no additional complaints, except as documented *Gastrointestinal Gastrointestinal: Reports system reviewed and no additional complaints, except as documented *Genitourinary Genitourinary: Reports system reviewed and no additional complaints, except as documented *Musculoskeletal Musculoskeletal: Reports system reviewed and no additional complaints, except as documented *Neurologic Neurologic: Reports system reviewed and no additional complaints, except as documented, Reports disequilibrium and Reports frequent falls Endocrine Endocrine: Reports polyuria Meds Home Medications and Allergies Home Medications ?Medication ?Instructions ?Recorded ?Confirmed ?Type docusate calcium 240 mg capsule 240 mg PO DAILY #30 caps 09/10/24 Rx (Stool Softener (docusate calcium)) ondansetron 4 mg disintegrating 4 mg PO Q6H PRN nausea and 09/10/24 Rx tablet vomiting #20 tabs polyethylene glycol 3350 17 17 g PO DAILY 10 days #170 grams 09/10/24 Rx gram/dose oral powder (Miralax) promethazine 12.5 mg tablet 12.5 mg PO TID #20 tabs 09/10/24 Rx sennosides 8.6 mg tablet (Natural 8.6 mg PO DAILY #30 tabs 09/10/24 Rx Senna Laxative) fluconazole 150 mg tablet 150 mg PO DAILY 2 days #2 tabs 01/12/25 Rx methocarbamol 750 mg tablet 750 mg PO HS #30 tabs 01/12/25 Rx metronidazole 500 mg tablet 500 mg PO BID #14 tabs 01/12/25 Rx New Prescriptions to Start Prescriptions: Allergies Allergy/AdvReac Type Severity Reaction Status Date / Time penicillin G (PENICILLIN G) Allergy Unknown Verified 12/18/22 14:05 Exam Data for Last 24 hours Vital signs and Labs for Last 24 Hours: Temp Pulse Resp BP Pulse Ox O2 Del Method 98.4 F 104 H 16 158/109 H 100 Room Air 02/20/25 17:39 02/20/25 18:45 02/20/25 17:39 02/20/25 18:45 02/20/25 18:45 02/20/25 18:45 Laboratory Results - last 24 hr 02/20/25 18:05: WBC 7.4, RBC 4.42, Hgb 12.4, Hct 37.3, MCV 84.4, MCH 28.1, MCHC 33.2, RDW 12.8, Plt Count 297, MPV 9.5, Neut % (Auto) 59.1, Lymph % (Auto) 34.1, [place] % (Auto) 5.4, Eos % (Auto) 0.7, Baso % (Auto) 0.4, Neut # (Auto) 4.4, Lymph # (Auto) 2.5, [place] # (Auto) 0.4, Eos # (Auto) 0.1, Baso # (Auto) 0.0, D-Dimer 0.64 H, Sodium 128 L, Potassium 3.5, Chloride 90 L, Carbon Dioxide 24, Anion Gap 17.5 H, BUN 3 L, Creatinine 0.50 L, Estimated Creat Clear 191, Estimated GFR 140, Est GFR ( Amer) 170, Glucose 719 H*, Calcium 8.7, Total Bilirubin 1.5 H, AST 27, ALT 20, Alkaline Phosphatase 85, Total Creatine Kinase 40, Total Protein 7.8, Albumin 3.9, Globulin 3.9 H, Albumin/Globulin Ratio 1.0 L 02/20/25 18:06: Urine Color Yellow, Urine Appearance Clear, Urine pH 6.0, Ur Specific [place] <= 1.005, Urine Protein Negative, Urine Glucose (UA) 3+, Urine Ketones Negative, Urine Blood Negative, Urine Nitrate Negative, Urine Bilirubin Negative, Urine Urobilinogen 0.2, Ur Leukocyte Esterase Trace, Urine RBC 5-10, Urine WBC 10-20, Ur Squamous Epith Cells 3-5, Urine Bacteria 2+, Urine Yeast Occasional 02/20/25 : Hemoglobin A1c > 14.0 H I & O for Last 24 hours: Intake & Output 02/17/25 02/18/25 02/19/25 02/20/25 23:59 23:59 23:59 23:59 Weight 77.111 kg Constitutional Constitutional: no acute distress *Routine HEENT Exam Head: Present normocephalic Eye: Present EOMI and PERRL ENT: Present mucous membranes moist *Routine Neck Exam Neck: Present supple; Absent lymphadenopathy *Routine Respiratory Exam Respiratory: Present CTA bilaterally *Routine Cardiovascular Exam Cardiovascular: Present RRR and murmur Comments: Diastolic murmur *Routine Abdominal Exam Abdominal: Present soft and normoactive bowel sounds; Absent tenderness *Routine Rectal Exam Rectal:: deferred *Routine Genitalia Exam Genitalia:: deferred *Routine Extremities Exam Extremities: Absent cyanosis, clubbing or edema *Routine Skin Exam Skin: Present warm; Absent rash *Routine Neurological Exam Neurological: Present alert and oriented X3 Assessment and Plan *Assessment and plan (1) Diabetes mellitus, new onset: Status: Acute Category: Medical Code(s): E11.9 - Type 2 diabetes mellitus without complications (2) Hyperosmolality syndrome: Status: Acute Category: Medical Code(s): E87.0 - Hyperosmolality and hypernatremia (3) Murmur, diastolic: Status: Acute Category: Medical Code(s): I38 - Endocarditis, valve unspecified (4) Hyponatremia: Status: Acute Category: Medical Code(s): E87.1 - Hypo-osmolality and hyponatremia Plan 34-year-old female, history of gestational diabetes previously on insulin. Presents with a fall secondary to leg weakness. Noted to have severely elevated blood glucose. [facility]. Will give fluids and insulin, monitor labs. Noted to have diastolic flow murmur will order echo HHS - SSI every 4 hour - Lantus 20 x 1 - BMP at 2300 - AM labs - Insulin on discharge Hyponatremia, asymptomatic - Monitor with serial labs Hypertension -Potentially acute stress response, consider LUCY or ARB for renal protection of diabetes if antihypertensive remains indicated Diastolic murmur - echo
[2025-02-20 20:27] VITALS: BP 157/97; PULSE 94; RESP 20; TEMP 36.6; O2SAT 100
--- NOTE | 2025-02-20 20:39 | PC.NURSE ---
pt arrived to floor at this time
--- NOTE | 2025-02-20 21:24 | PC.NURSE ---
Talked to Jesus Messina MD regarding pt. FSBS 515, ordered to give Lantus per mar and 10 units of lispro. Ordered random glucose per written protocol.
[2025-02-20 21:27] LABS: POC Glucose,Bedside 515 (70-110)
[2025-02-20] MEDS: INSULIN GLARGINE 100 UNITS/ML 3ML FLEXPEN 20 UNIT SUBCUT (21:37)
[2025-02-20] MEDS: humaLOG 100 UNITS/ML 10ML VIAL (SSI) SUBCUT (21:38)
[2025-02-20 22:08] LABS: Glucose,Random 437 mg/dL (74-100)
--- NOTE | 2025-02-20 22:24 | PC.NURSE ---
abrasion right knee abrasion left knee
[2025-02-20] MEDS: 0.9 % SODIUM CHLORIDE 1000ML 1,000 ML 50 ML IV (22:56)
[2025-02-20 23:16] LABS: Lactate Venous 1.7 mmol/L (0.4-2.0); VBG Base Excess -6.1 mmol/L (-2.4-2.3); VBG HCO3 18.8 mmol/L (23-30); VBG Oxygen Saturation 87.2 % (50-70); VBG PCO2 31.9 mmol/L (35-51); VBG PH 7.39 mmol/L (7.31-7.41); VBG PO2 51.5 mmol/L (28-40); VBG Total CO2 19.8 mmol/L (23-27)
[2025-02-20 23:28] LABS: Anion Gap 13.5 mEq/L (5-15); Blood Urea Nitrogen 3 mg/dl (7-17); Calcium 8.2 mg/dl (8.4-10.2); Carbon Dioxide 26 mmol/L (22.0-30.0); Chloride 98 mmol/L (98-107); Creatinine Clearance Estimated 239 mL/min (50-200); Estimated Glomerular Filt Rate 182 ml/min (>60); GFR (African American) 220 ML/MIN (>60); Glucose 300 mg/dl (74-100); Potassium 3.5 mmoL/L (3.5-5.1); Sodium 134 mmol/L (136-145)
[2025-02-21] VITALS: BP 111/61; PULSE 90; PULSE 91; RESP 15; TEMP 36.6; O2SAT 96
--- NOTE | 2025-02-21 00:06 | CA_ITS ---
APPROVED REPORT EXAM: Comprehensive 2D, Doppler, and color-flow Echocardiogram Operational Meteorologist: Charla Cloud RDCS Ht: 5 ft 5 in Wt: 170lbs BSA: 1.85 BP: 158/109 mmHg Indications: MURMUR M-Mode Dimensions RVDd 2.74 cm (0.9-2.6) LA Diam 3.62 cm (1.9-4.0) LVDd 3.99 cm (3.5-5.7) LVDs 2.74 cm (3.5-5.7) IVSd 0.53 cm (0.6-1.1) PWd 0.53 cm (0.6-1.1) EF (Teich) 59.80% FS 31.30% EDV (Teich) 69.60 mL TAPSE 2.34 (<1.7) ESV (Teich) 28.00 mL LV Diastology E Decel Time 147 (160-240 msec) E/A Ratio 1.4 Mitral Valve MV E Max Chung. 94.0 (40-130 cm/s) MV A Velocity 67.0 (40-130 cm/s) E/A Ratio 1.39 MV PHT 43.0 ms Tricuspid Valve TR P. Velocity 271.00 cm/s RAP Estimate 10.00 mmHg RVSP 39.30 mmHg Left Ventricle The left ventricle is normal size. The left ventricular systolic function is normal. The left ventricular ejection fraction is within the normal range. There is increased LV wall thickness. There is normal LV segmental wall motion. Transmitral Doppler flow pattern suggests impaired LV relaxation. LVEF is 60%. Right Ventricle Right ventricle is moderately dilated. There is low normal RV systolic function. Atria The left atrium size is normal. The right atrium size is normal. The interatrial septum is not well evaluat visualized on the study. Aortic Valve The aortic valve opens well. There is no aortic valvular stenosis. No aortic regurgitation is present. Mitral Valve The mitral valve is normal in structure. No evidence of mitral valve stenosis. Trace mitral regurgitation. Tricuspid Valve Tricuspid valve is grossly normal in structure and function. Mild tricuspid regurgitation. RVSP is 30-35 mmHg. Pulmonic Valve The pulmonary valve is normal in structure. Trace pulmonic regurgitation. Great Vessels The aortic root is normal in size. IVC is normal in size and collapses >50% with inspiration. Pericardium There is no pericardial effusion. Other Information Study Quality: Fair Conclusion Normal LV systolic function. Moderate RV dilation with low normal RV function. Mild TR. RVSP 30-35 mmHg. In the setting of RV dysfunction, further evaluation with limited TTE with agitated saline administration to evaluate for interatrial shunt., as well as pulmonary and sleep workup, are suggested., as cinically indicated. Electronically signed by : Afua Williamson MD 02/23/2025 21:38:05
[2025-02-21] MEDS: KCl 20mEq/100ml 100 ML 50 MEQ IV (00:13)
[2025-02-21 00:20] LABS: POC Glucose,Bedside 272 (70-110)
[2025-02-21] MEDS: humaLOG 100 UNITS/ML 10ML VIAL (SSI) SUBCUT ×4 (00:21→11:06)
[2025-02-21 04:00] VITALS: BP 105/68; PULSE 85; PULSE 90; RESP 16; TEMP 36.8; O2SAT 94; BMI 28.4
[2025-02-21 04:23] LABS: POC Glucose,Bedside 206 (70-110)
--- NOTE | 2025-02-21 05:26 | PC.NURSE ---
pt. is a&ox4. Pt. ambulates well in room. Pt. is tolerating RA. Pt. FSBS was 515 when arriving to floor, insulin was provided per mar. Bed is low, locked and call light is in reach.
--- NOTE | 2025-02-21 05:53 | PC.NURSE ---
Passed water, wiped and cleared bedside table off.
[2025-02-21 06:44] LABS: Eosinophils # 0.1 Kmm3 (0.0-0.4); Lymphocytes # 2.6 K/mm3 (0.7-4.5); Mean Platelet Volume 9.6 fl (7.4-10.4); Monocytes # 0.4 K/mm3 (0.1-1.0); Neutrophils % 52.1 % (37.0-80.0); Nucleated Red Blood Cells # 0 10^3/uL; Nucleated Red Blood Cells % 0 %
[2025-02-21 06:46] LABS: Chloride 104 mmol/L (98-107); Potassium 3.6 mmoL/L (3.5-5.1); Sodium 135 mmol/L (136-145)
[2025-02-21 06:49] LABS: Alanine Aminotransferase 12 U/L (12-78); Alkaline Phosphatase 79 U/L (38-126); Anion Gap 11.6 mEq/L (5-15); Aspartate Amino Transferase 17 U/L (14-36); Bilirubin,Total 0.7 mg/dl (0.2-1.3); Blood Urea Nitrogen 3 mg/dl (7-17); Calcium 7.5 mg/dl (8.4-10.2); Carbon Dioxide 23 mmol/L (22.0-30.0); Cholesterol 125 mg/dl (140-200); Creatinine Clearance Estimated 240 mL/min (50-200); Estimated Glomerular Filt Rate 182 ml/min (>60); GFR (African American) 220 ML/MIN (>60); Globulin 2.9 g/dL (1.3-3.2); Glucose 232 mg/dl (74-100); Phosphorous 2.5 mg/dl (2.5-4.5); Total Protein,Serum 5.9 g/dl (6.3-8.2); Triglycerides 103 mg/dl (30-150); VLDL Cholesterol 21 mg/dL (0-40)
[2025-02-21 06:50] LABS: Chol/HDL Ratio 5.4 (1-3.5); HDL Cholesterol 23 mg/dl (40-60); Magnesium 2.1 mg/dl (1.6-2.3)
[2025-02-21 07:05] LABS: Basophils % 0.6 % (0.1-2.0); Eosinophils % 1.4 % (0.1-12.0); Hematocrit 30.3 % (37.0-47.0); Immature Granulocytes # 0.01 10^3uL; Immature Granulocytes % 0.2 %; Lymphocytes % 40.1 % (10-50); Mean Corpuscular HGB Conc 33.3 g/dL (31.8-35.4); Mean Corpuscular Hemoglobin 27.9 pg (27.0-31.2); Mean Corpuscular Volume 83.7 fl (81-99); Monocytes % 5.6 % (1.7-9.3); Neutrophils # 3.4 K/mm3 (1.8-7.8); Platelet Count 237 K/mm3 (142-424); Red Blood Count 3.62 M/mm3 (4.20-5.40); Red Cell Distribution Width 12.8 % (11.5-17.5); Red Cell Distribution Width-SD 38.7 fL; White Blood Count 6.6 K/mm3 (4.8-10.8)
[2025-02-21 07:19] LABS: Hemoglobin 10.1 g/dL (12.2-16.2)
[2025-02-21 08:00] VITALS: BP 107/70; PULSE 90; PULSE 94; RESP 18; TEMP 36.9; O2SAT 97
[2025-02-21 08:53] LABS: POC Glucose,Bedside 337 (70-110)
[2025-02-21] MEDS: ENOXAPARIN 40MG/0.4ML SYRINGE 40 MG SUBCUT (11:06)
[2025-02-21 11:17] LABS: POC Glucose,Bedside 257 (70-110)
[2025-02-21 11:32] LABS: Chlamydia trachomatis Positive (Negative); Neisseria gonorrhoeae Negative (Negative); Trichomonas vaginalis Negative (Negative)
[2025-02-21 12:00] VITALS: PULSE 88
[2025-02-21 12:19] VITALS: BP 112/68; PULSE 89; RESP 18; TEMP 36.8; O2SAT 98
--- NOTE | 2025-02-21 12:49 | P.DS_ITS ---
<Statement entered by Miguelito Jordan MD - 02/21/25 13:46> Rounded on patient after nurse practitioner. Personally examined and interviewed patient. Agree with exam findings and care plan as documented. General Admission date:: 02/20/25 Discharge date: 02/21/25 HPI HPI HPI: 34-year-old female no prior medical history other than gestational diabetes presents to the emergency department after sustaining a minor fall with skin abrasions to her knees. She states that she has been feeling kind of weak over the last few days. She has also been having excessive urination and thirst. To day she noted her legs were going numb. When she went to use step over something she was unable to lift her leg and then tripped over it landing on her knees. In the emergency department she was tachycardic. Noted to have severely elevated blood glucose in the 700s. She was given IV fluids and insulin. CT PE was performed due to tachycardia. Demonstrated mild pulmonary edema versus air trapping, otherwise no acute findings. Discussed finding with patient. Discussed admission. Patient agreeable with plan and being admitted overnight. No other concerns or complaints at this time. History independently obtained. Diagnostics were independently interpreted and reviewed. Prior records were reviewed independently. Case discussed with ER physician Hospital Course Hospital Course Hospital Course: Ms. Junior is a 34-year-old female who was admitted to the hospital for elevated blood sugars. She presented to the emergency department with right lower extremity heaviness, and a fall. Workup was done in the ER and patient was found to have elevated blood sugars, initial blood sugar was 719 and A1c >14%. She was admitted to the hospital for further management. She did not appear to be in DKA at time of admission. Anion gap was 17.5 which normalized to 11.6 today. Patient stated that she did not know she was diabetic, but has a history of elevated blood sugars in her medical record. She is not currently on any medication at home. She did state that she had gestational diabetes. Patient was started on regular sliding scale insulin, and NS at 50 mL/hour. She was also started on Lantus 20 units subcu once daily. Blood sugars have regulated remaining between 200-300. Discussed in depth with patient the need for diabetic medication, and nutritional considerations. The dietitian did see her and make a plan. She will be started on Lantus 40 mg subcu daily, metformin 500 mg twice daily, and Ozempic 0.25 subcu weekly. She will also be discharged with an Accu-Chek and supplies. Education was given, patient states her daughter is a type I diabetic and she understands how to check sugars and give injections. Close follow-up with her PCP at discharge. Incidentally she was having vaginal discharge noted in the ER, urine STI check was positive for chlamydia. Discussed with patient the need to complete doxycycline antibiotics, also prescribed Diflucan if needed. Discussed the importance of having her partner tested or treated as well. Total time spent on discharge 33 minutes in counseling, documentation, chart review, and direct care with patient. Exam Data for Last 24 hours Vital signs and Labs for Last 24 Hours: Temp Pulse Resp BP Pulse Ox O2 Del Method 98.2 F 89 18 112/68 98 Room Air 02/21/25 12:19 02/21/25 12:19 02/21/25 12:19 02/21/25 12:19 02/21/25 12:19 02/21/25 12:31 Laboratory Results - last 24 hr 02/20/25 18:05: WBC 7.4, RBC 4.42, Hgb 12.4, Hct 37.3, MCV 84.4, MCH 28.1, MCHC 33.2, RDW 12.8, Plt Count 297, MPV 9.5, Neut % (Auto) 59.1, Lymph % (Auto) 34.1, [place] % (Auto) 5.4, Eos % (Auto) 0.7, Baso % (Auto) 0.4, Neut # (Auto) 4.4, Lymph # (Auto) 2.5, [place] # (Auto) 0.4, Eos # (Auto) 0.1, Baso # (Auto) 0.0, D-Dimer 0.64 H, Sodium 128 L, Potassium 3.5, Chloride 90 L, Carbon Dioxide 24, Anion Gap 17.5 H, BUN 3 L, Creatinine 0.50 L, Estimated Creat Clear 191, Estimated GFR 140, Est GFR ( Amer) 170, Glucose 719 H*, Calcium 8.7, Total Bilirubin 1.5 H, AST 27, ALT 20, Alkaline Phosphatase 85, Total Creatine Kinase 40, Total Protein 7.8, Albumin 3.9, Globulin 3.9 H, Albumin/Globulin Ratio 1.0 L 02/20/25 18:06: Urine Color Yellow, Urine Appearance Clear, Urine pH 6.0, Ur Specific [place] <= 1.005, Urine Protein Negative, Urine Glucose (UA) 3+, Urine Ketones Negative, Urine Blood Negative, Urine Nitrate Negative, Urine Bilirubin Negative, Urine Urobilinogen 0.2, Ur Leukocyte Esterase Trace, Urine RBC 5-10, Urine WBC 10-20, Ur Squamous Epith Cells 3-5, Urine Bacteria 2+, Urine Yeast Occasional 02/20/25 18:13: Ur C. trach DNA (PCR) Positive A, U N.gonorrhoeae DNA PCR Negative, T. vaginalis (PCR) Negative 02/20/25 18:38: VBG pH 7.39, VBG pCO2 31.9 L, VBG pO2 51.5 H, VBG HCO3 18.8 L, VBG Total CO2 19.8 L, VBG O2 Saturation 87.2 H, VBG Base Excess -6.1 L, VBG Lactic Acid 1.7 02/20/25 21:18: POC Glucose 515 H* 02/20/25 21:36: Random Glucose 437 H* 02/20/25 23:05: Sodium 134 L, Potassium 3.5, Chloride 98, Carbon Dioxide 26, Anion Gap 13.5, BUN 3 L, Creatinine 0.40 L, Estimated Creat Clear 239, Estimated GFR 182, Est GFR ( Amer) 220 D, Glucose 300 H D, Calcium 8.2 L 02/20/25 : Hemoglobin A1c > 14.0 H 02/21/25 00:13: POC Glucose 272 H 02/21/25 04:15: POC Glucose 206 H 02/21/25 05:45: WBC 6.6, RBC 3.62 L, Hgb 10.1 L D, Hct 30.3 L, MCV 83.7, MCH 27.9, MCHC 33.3, RDW 12.8, Plt Count 237, MPV 9.6, Neut % (Auto) 52.1, Lymph % (Auto) 40.1, [place] % (Auto) 5.6, Eos % (Auto) 1.4, Baso % (Auto) 0.6, Neut # (Auto) 3.4, Lymph # (Auto) 2.6, [place] # (Auto) 0.4, Eos # (Auto) 0.1, Baso # (Auto) 0.0, Sodium 135 L, Potassium 3.6, Chloride 104, Carbon Dioxide 23, Anion Gap 11.6, BUN 3 L, Creatinine 0.40 L, Estimated Creat Clear 240, Estimated GFR 182, Est GFR ( Amer) 220, Glucose 232 H D, Calcium 7.5 L, Phosphorus 2.5, Magnesium 2.1, Total Bilirubin 0.7, AST 17 D, ALT 12 D, Alkaline Phosphatase 79, Total Protein 5.9 L, Albumin 3.0 L D, Globulin 2.9, Albumin/Globulin Ratio 1.0 L, Triglycerides 103, Cholesterol 125 L, LDL Cholesterol Direct 71.60 L, VLDL Cholesterol 21, HDL Cholesterol 23 L, Cholesterol/HDL Ratio 5.4 H 02/21/25 08:39: POC Glucose 337 H* 02/21/25 11:05: POC Glucose 257 H I & O for Last 24 hours: Intake & Output 02/18/25 02/19/25 02/20/25 02/21/25 23:59 23:59 23:59 23:59 Intake Total 1000 / 1000 2770 / 2770 Output Total 0 / 0 0 / 0 Balance 1000 / 1000 2770 / 2770 Weight 77.111 kg 77.337 kg Microbiology Reports for the Last 24 Hours: Microbiology 02/20/25 18:06 Urine,Clean Catch Urine Culture - Preliminary Constitutional Constitutional: no acute distress *Routine HEENT Exam Head: Present normocephalic Eye: Present EOMI and PERRL ENT: Present mucous membranes moist *Routine Neck Exam Neck: Present supple and full ROM *Routine Respiratory Exam Respiratory: Present CTA bilaterally, able to speak in complete sentences and symmetric chest movement *Routine Cardiovascular Exam Cardiovascular: Present Normal S1, Normal S2 and murmur *Routine Abdominal Exam Abdominal: Present soft and normoactive bowel sounds; Absent tenderness or distended *Routine Extremities Exam Extremities: Present full ROM and normal capillary refill *Routine Skin Exam Skin: Present intact and dry *Routine Neurological Exam Neurological: Present alert, oriented X3 and normal speech Results Data Completed and Pending Labs on day of discharge: Labs from last 24 hours 02/21/25 02/21/25 02/21/25 11:05 08:39 05:45 WBC 6.6 RBC 3.62 L Hgb 10.1 L D Hct 30.3 L MCV 83.7 MCH 27.9 MCHC 33.3 RDW 12.8 Plt Count 237 MPV 9.6 Neut % (Auto) 52.1 Lymph % (Auto) 40.1 Irwin % (Auto) 5.6 Eos % (Auto) 1.4 Baso % (Auto) 0.6 Neut # (Auto) 3.4 Lymph # (Auto) 2.6 [place]win # (Auto) 0.4 Eos # (Auto) 0.1 Baso # (Auto) 0.0 D-Dimer VBG pH VBG pCO2 VBG pO2 VBG HCO3 VBG Total CO2 VBG O2 Saturation VBG Base Excess VBG Lactic Acid Sodium 135 L Potassium 3.6 Chloride 104 Carbon Dioxide 23 Anion Gap 11.6 BUN 3 L Creatinine 0.40 L Estimated Creat Clear 240 Estimated GFR 182 Est GFR ( Amer) 220 Glucose 232 H D POC Glucose 257 H 337 H* Random Glucose Hemoglobin A1c Calcium 7.5 L Phosphorus 2.5 Magnesium 2.1 Total Bilirubin 0.7 AST 17 D ALT 12 D Alkaline Phosphatase 79 Total Creatine Kinase Total Protein 5.9 L Albumin 3.0 L D Globulin 2.9 Albumin/Globulin Ratio 1.0 L Triglycerides 103 Cholesterol 125 L LDL Cholesterol Direct 71.60 L VLDL Cholesterol 21 HDL Cholesterol 23 L Cholesterol/HDL Ratio 5.4 H Urine Color Urine Appearance Urine pH Ur Specific [place] Urine Protein Urine Glucose (UA) Urine Ketones Urine Blood Urine Nitrate Urine Bilirubin Urine Urobilinogen Ur Leukocyte Esterase Urine RBC Urine WBC Ur Squamous Epith Cells Urine Bacteria Urine Yeast Ur C. trach DNA (PCR) U N.gonorrhoeae DNA PCR T. vaginalis (PCR) 02/21/25 02/21/25 02/20/25 04:15 00:13 Unknown WBC RBC Hgb Hct MCV MCH MCHC RDW Plt Count MPV Neut % (Auto) Lymph % (Auto) [place] % (Auto) Eos % (Auto) Baso % (Auto) Neut # (Auto) Lymph # (Auto) [place] # (Auto) Eos # (Auto) Baso # (Auto) D-Dimer VBG pH VBG pCO2 VBG pO2 VBG HCO3 VBG Total CO2 VBG O2 Saturation VBG Base Excess VBG Lactic Acid Sodium Potassium Chloride Carbon Dioxide Anion Gap BUN Creatinine Estimated Creat Clear Estimated GFR Est GFR ( Amer) Glucose POC Glucose 206 H 272 H Random Glucose Hemoglobin A1c > 14.0 H Calcium Phosphorus Magnesium Total Bilirubin AST ALT Alkaline Phosphatase Total Creatine Kinase Total Protein Albumin Globulin Albumin/Globulin Ratio Triglycerides Cholesterol LDL Cholesterol Direct VLDL Cholesterol HDL Cholesterol Cholesterol/HDL Ratio Urine Color Urine Appearance Urine pH Ur Specific [place] Urine Protein Urine Glucose (UA) Urine Ketones Urine Blood Urine Nitrate Urine Bilirubin Urine Urobilinogen Ur Leukocyte Esterase Urine RBC Urine WBC Ur Squamous Epith Cells Urine Bacteria Urine Yeast Ur C. trach DNA (PCR) U N.gonorrhoeae DNA PCR T. vaginalis (PCR) 02/20/25 02/20/25 02/20/25 23:05 21:36 21:18 WBC RBC Hgb Hct MCV MCH MCHC RDW Plt Count MPV Neut % (Auto) Lymph % (Auto) [place] % (Auto) Eos % (Auto) Baso % (Auto) Neut # (Auto) Lymph # (Auto) [place] # (Auto) Eos # (Auto) Baso # (Auto) D-Dimer VBG pH VBG pCO2 VBG pO2 VBG HCO3 VBG Total CO2 VBG O2 Saturation VBG Base Excess VBG Lactic Acid Sodium 134 L Potassium 3.5 Chloride 98 Carbon Dioxide 26 Anion Gap 13.5 BUN 3 L Creatinine 0.40 L Estimated Creat Clear 239 Estimated GFR 182 Est GFR ( Amer) 220 D Glucose 300 H D POC Glucose 515 H* Random Glucose 437 H* Hemoglobin A1c Calcium 8.2 L Phosphorus Magnesium Total Bilirubin AST ALT Alkaline Phosphatase Total Creatine Kinase Total Protein Albumin Globulin Albumin/Globulin Ratio Triglycerides Cholesterol LDL Cholesterol Direct VLDL Cholesterol HDL Cholesterol Cholesterol/HDL Ratio Urine Color Urine Appearance Urine pH Ur Specific [place] Urine Protein Urine Glucose (UA) Urine Ketones Urine Blood Urine Nitrate Urine Bilirubin Urine Urobilinogen Ur Leukocyte Esterase Urine RBC Urine WBC Ur Squamous Epith Cells Urine Bacteria Urine Yeast Ur C. trach DNA (PCR) U N.gonorrhoeae DNA PCR T. vaginalis (PCR) 02/20/25 02/20/25 02/20/25 18:38 18:13 18:06 WBC RBC Hgb Hct MCV MCH MCHC RDW Plt Count MPV Neut % (Auto) Lymph % (Auto) [place] % (Auto) Eos % (Auto) Baso % (Auto) Neut # (Auto) Lymph # (Auto) [place] # (Auto) Eos # (Auto) Baso # (Auto) D-Dimer VBG pH 7.39 VBG pCO2 31.9 L VBG pO2 51.5 H VBG HCO3 18.8 L VBG Total CO2 19.8 L VBG O2 Saturation 87.2 H VBG Base Excess -6.1 L VBG Lactic Acid 1.7 Sodium Potassium Chloride Carbon Dioxide Anion Gap BUN Creatinine Estimated Creat Clear Estimated GFR Est GFR ( Amer) Glucose POC Glucose Random Glucose Hemoglobin A1c Calcium Phosphorus Magnesium Total Bilirubin AST ALT Alkaline Phosphatase Total Creatine Kinase Total Protein Albumin Globulin Albumin/Globulin Ratio Triglycerides Cholesterol LDL Cholesterol Direct VLDL Cholesterol HDL Cholesterol Cholesterol/HDL Ratio Urine Color Yellow Urine Appearance Clear Urine pH 6.0 Ur Specific [place] <= 1.005 Urine Protein Negative Urine Glucose (UA) 3+ Urine Ketones Negative Urine Blood Negative Urine Nitrate Negative Urine Bilirubin Negative Urine Urobilinogen 0.2 Ur Leukocyte Esterase Trace Urine RBC 5-10 Urine WBC 10-20 Ur Squamous Epith Cells 3-5 Urine Bacteria 2+ Urine Yeast Occasional Ur C. trach DNA (PCR) Positive A U N.gonorrhoeae DNA PCR Negative T. vaginalis (PCR) Negative 02/20/25 18:05 WBC 7.4 RBC 4.42 Hgb 12.4 Hct 37.3 MCV 84.4 MCH 28.1 MCHC 33.2 RDW 12.8 Plt Count 297 MPV 9.5 Neut % (Auto) 59.1 Lymph % (Auto) 34.1 [place] % (Auto) 5.4 Eos % (Auto) 0.7 Baso % (Auto) 0.4 Neut # (Auto) 4.4 Lymph # (Auto) 2.5 [place] # (Auto) 0.4 Eos # (Auto) 0.1 Baso # (Auto) 0.0 D-Dimer 0.64 H VBG pH VBG pCO2 VBG pO2 VBG HCO3 VBG Total CO2 VBG O2 Saturation VBG Base Excess VBG Lactic Acid Sodium 128 L Potassium 3.5 Chloride 90 L Carbon Dioxide 24 Anion Gap 17.5 H BUN 3 L Creatinine 0.50 L Estimated Creat Clear 191 Estimated GFR 140 Est GFR ( Amer) 170 Glucose 719 H* POC Glucose Random Glucose Hemoglobin A1c Calcium 8.7 Phosphorus Magnesium Total Bilirubin 1.5 H AST 27 ALT 20 Alkaline Phosphatase 85 Total Creatine Kinase 40 Total Protein 7.8 Albumin 3.9 Globulin 3.9 H Albumin/Globulin Ratio 1.0 L Triglycerides Cholesterol LDL Cholesterol Direct VLDL Cholesterol HDL Cholesterol Cholesterol/HDL Ratio Urine Color Urine Appearance Urine pH Ur Specific [place] Urine Protein Urine Glucose (UA) Urine Ketones Urine Blood Urine Nitrate Urine Bilirubin Urine Urobilinogen Ur Leukocyte Esterase Urine RBC Urine WBC Ur Squamous Epith Cells Urine Bacteria Urine Yeast Ur C. trach DNA (PCR) U N.gonorrhoeae DNA PCR T. vaginalis (PCR) Preliminary micro results at discharge 02/20/25 18:06 Urine Culture - Preliminary Urine,Clean Catch DS: Diagnosis Discharge Diagnosis (1) Diabetes mellitus, new onset: Status: Acute Code(s): E11.9 - Type 2 diabetes mellitus without complications (2) Hyperosmolality syndrome: Status: Acute Code(s): E87.0 - Hyperosmolality and hypernatremia (3) Murmur, diastolic: Status: Acute Code(s): I38 - Endocarditis, valve unspecified (4) Hyponatremia: Status: Acute Code(s): E87.1 - Hypo-osmolality and hyponatremia (5) Chlamydia infection: Status: Acute Code(s): A74.9 - Chlamydial infection, unspecified Meds Home Medications and Allergies Home Medications ?Medication ?Instructions ?Recorded ?Confirmed ?Type blood glucose control, normal #1 ea 02/21/25 Rx (Accu-Chek SmartView Control Solution) blood sugar diagnostic (Accu-Chek #100 ea 02/21/25 Rx Guide test strips) blood-glucose meter (Accu-Chek #1 ea 02/21/25 Rx Guide Glucose Meter) doxycycline hyclate 100 mg capsule 100 mg PO BID #20 c aps 02/21/25 Rx fluconazole 150 mg tablet 150 mg PO Q3D 2 doses #2 tab s 02/21/25 Rx insulin glargine 100 unit/mL (3 40 unit (0.4 mL) SQ HS #15 mL 02/21/25 Rx mL) subcutaneous pen (Basaglar KwikPen U-100 Insulin) lancing device with lancets kit #1 ea 02/21/25 Rx (Accu-Chek FastClix Lancing Device kit) metformin 500 mg tablet 500 mg PO BIDWMEAL #60 tabs 02/21/25 Rx pen needle, diabetic 31 gauge x #100 ea 02/21/25 Rx 1/4 semaglutide 0.25 mg or 0.5 mg (2 0.25 mg (0.368 mL) SQ WEEKLY #3 mL 02/21/25 Rx mg/3 mL) subcutaneous pen injector (Ozempic) New Prescriptions to Start Prescriptions: blood glucose control, normal [Accu-Chek SmartView Contrl Tanya] Milvia Tamayo blood sugar diagnostic [Accu-Chek Guide test strips] Milvia Tamayo blood-glucose meter [Accu-Chek Guide Glucose Meter] Milvia Tamayo doxycycline hyclate Milvia Tamayo fluconazole Milvia Tamayo insulin glargine [Basaglar KwikPen U-100 Insulin] Milvia Tamayo lancing device with lancets [Accu-Chek FastClix Lancing Dev] Milvia Tamayo metformin Milvia Tamayo pen needle, diabetic Miguelito Jordan semaglutide [Ozempic] Milvia Tamayo Allergies Allergy/AdvReac Type Severity Reaction Status Date / Time penicillin G (PENICILLIN G) Allergy Unknown Verified 12/18/22 14:05 Discharge Plan Disposition Patient Disposition: Home, Self-Care Condition: Fair Follow up Plan Follow up with: Andrea Gary APRN [Primary Care Provider, [facility]] - 03/01/25 1:00 pm Referral Note: 1-2 weeks Prescriptions/Medication Reconciliation: New (DME) pen needle, diabetic 31 gauge x 1/4 needle See Rx Instructions .ROUTE .MEDSUPPLY Qty: 100 0RF Rx Instructions: daily with insulin Ozempic 0.25 mg or 0.5 mg (2 mg/3 mL) pen injector 0.25 mg SQ WEEKLY Qty: 3 0RF Rx Instructions: for 4 weeks metformin 500 mg tablet 500 mg PO BIDWMEAL Qty: 60 1RF (DME) blood glucose control, normal [Accu-Chek SmartView Contrl Tanya] Solution See Rx Instructions .Route Qty: 1 0RF Rx Instructions: As directed (DME) blood-glucose meter [Accu-Chek Guide Glucose Meter] [facility] See Rx Instructions .Route Qty: 1 0RF Rx Instructions: blood sugar checks in AM (DME) lancing device with lancets [Accu-Chek FastClix Lancing Dev] Kit See Rx Instructions .Route Qty: 1 0RF Rx Instructions: As directed (DME) Accu-Chek Guide test strips Strip See Rx Instructions .Route Qty: 100 0RF Rx Instructions: As directed insulin glargine [Basaglar KwikPen U-100 Insulin] 100 unit/mL (3 mL) insulin pen 40 unit SQ HS Qty: 15 1RF fluconazole 150 mg tablet 150 mg PO Q3D Qty: 2 0RF doxycycline hyclate 100 mg capsule 100 mg PO BID Qty: 20 0RF Problem Reconciliation Problems Reviewed?: Yes Patient Discharge Instructions ACTIVITY: Continue current activity DIET: diabetic diet Patient Instructions: Complications of Type 2 Diabetes, DI for Chlamydia, DI for Diabetes Type 2 Print Language: Turkmen Providers Primary Care Provider: Andrea Gary Admit Provider: Miguelito Jordan Attending Provider: Miguelito Jordan
--- NOTE | 2025-02-22 10:17 | SW/DCPLANNER ---
Spoke with patient on the phone. Patient stated that she is doing alot better. Patient stated that she took her ozempic before bed and it made her nauseous. Patient stated that she is aware of her upcoming appointment. Patient stated that she got her meds brought to her bed before she was discharged. Patient stated that she has no concerns or questions. Aubrey Cabrera
== END 2025-02-21 13:52 | disposition home or self-care (01) ==
LOC: ER 19:40 → 2ND 20:00
PROVIDERS: Student in an Organized Health Care Education/Training Program; Admitting Provider Internal Medicine Adolescent Medicine; Emergency Provider Emergency Medicine; PCP Nurse Practitioner Family; Visit Provider Internal Medicine Adolescent Medicine
DX: E11.00 Type 2 diabetes mellitus with hyperosmolarity without nonketotic hyperglycemic-hyperosmolar coma (NKHHC) (principal); I38 Endocarditis, valve unspecified; I10 Essential (primary) hypertension; A74.9 Chlamydial infection, unspecified; E87.1 Hypo-osmolality and hyponatremia; R00.0 Tachycardia, unspecified; S80.212A Abrasion, left knee, initial encounter; S80.211A Abrasion, right knee, initial encounter; W19.XXXA Unspecified fall, initial encounter; Z88.0 Allergy status to penicillin; Z83.3 Family history of diabetes mellitus
CPT/HCPCS: 96361 ×2; 96365; 96372; 96375; 96376; 36415; 71275; 73562; 80048; 80053; 80061; 81001; 82550; 82803; 82947; 82962; 83036; 83735; 84100; 85025; 85378; 87086; 87088; 87186; 87491; 87591; 87661; 93306; G0378; J1650; J1885; J3475; J3480; J7030; Q9967